=== PATIENT | female | born 1975 | race African-American/Black ===

== ENCOUNTER 2017-05-07 17:28 | Emergency (ER) | payer SELFPAY ==
[~2017-05-07] VITALS: Ht 170.2 cm; Wt 86.2 kg
[~2017-05-07 17:28] MED LIST: SULF1TAB24 PO; TRAM-48 PO
[2017-05-07 17:37] VITALS: BP 122/84
[2017-05-07] MEDS ORDERED: METH4TAB2 PO (18:03)
[2017-05-07] MEDS ORDERED: CYCL10TA2 PO (18:03)
[2017-05-07] MEDS ORDERED: DICL50TA4 PO (18:03)
--- NOTE | 2017-05-07 18:03 | PHYS DOC ---
Past Medical History Past Medical History: No Pertinent History Past Surgical History: No Surgical History Alcohol Use: Rarely Drug Use: None Adult General Chief Complaint Chief Complaint: BACK PAIN OR INJURY HPI HPI Patient is a 42 year old female who presents with mild left lateral neck pain and left scapular pain that began on Wednesday when school opened. Patient states she believes she pulled a muscle. Patient states the pain is worse on movement. 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 She states she highly suspect she strained her muscles. Patient states she has not been working when school was out and Wednesday was the first day she went back to work and that is when the pain begun after lifting a couple heavy cooking pots. Patient denies any chest pain or shortness of breath. Review of Systems Review of Systems Constitutional: Denies fever or chills [] Eyes: Denies change in visual acuity, redness, or eye pain [] HENT: Denies nasal congestion or sore throat [] Respiratory: Denies cough or shortness of breath [] Cardiovascular: No additional information not addressed in HPI [] GI: Denies abdominal pain, nausea, vomiting, bloody stools or diarrhea [] : Denies dysuria or hematuria [] Musculoskeletal: Left scapular pain, left lateral neck pain Integument: Denies rash or skin lesions [] Neurologic: Denies headache, focal weakness or sensory changes [] Allergies Allergies Allergies Coded Allergies Type Severity Reaction Last Updated Verified codeine Allergy Intermediate 10/04/15 No Physical Exam Physical Exam Constitutional: Well developed, well nourished, no acute distress, non-toxic appearance. [] HENT: Normocephalic, atraumatic, bilateral external ears normal, oropharynx moist, no oral exudates, nose normal. [] Eyes: PERRLA, EOMI, conjunctiva normal, no discharge. [] Neck: Normal range of motion, no tenderness, supple, no stridor. [] Cardiovascular:Heart rate regular rhythm, no murmur [] Lungs & Thorax: Bilateral breath sounds clear to auscultation [] Abdomen: Bowel sounds normal, soft, no tenderness, no masses, no pulsatile masses. [] Skin: Warm, dry, no erythema, no rash. [] Back: No tenderness, no CVA tenderness. [] Extremities: No tenderness, no cyanosis, no clubbing, ROM intact, no edema. [] Neurologic: Alert and oriented X 3, normal motor function, normal sensory function, no focal deficits noted. [] Psychologic: Affect normal, judgement normal, mood normal. [] Current Patient Data Vital Signs Vital Signs Date Time Temp Pulse Resp B/P (MAP) Pulse Ox O2 Delivery O2 Flow Rate FiO2 05/07/17 17:37 98.6 97 14 98 Room Air 98.6 EKG EKG [] Radiology/Procedures Radiology/Procedures [] Course & Med Decision Making Course & Med Decision Making Pertinent Labs and Imaging studies reviewed. 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 She states she has been lifting heavy items since school began on Wednesday. Patient was discharged with diclofenac and cyclobenzaprine as well as Medrol Dosepak. She was instructed to follow-up with her PCP in one week. She was provided return precautions and discharged in stable condition. Dragon Disclaimer Dragon Disclaimer This electronic medical record was generated, in whole or in part, using a voice recognition dictation system. Departure Departure Impression: Primary Impression: Muscle strain Disposition: 01 HOME, SELF-CARE Condition: STABLE Referrals: PIOTR GARCIA MD (PCP) Follow-up with your doctor next week Patient Instructions: Muscle Strain Additional Instructions: You were seen for musculoskeletal pain of the left lateral spine as well as left scapula. We highly suspect your muscles. Avoid lifting anything heavy at least for 3 days. Apply heat or ice to the affected areas. Take the prescribed medicines as ordered. Do not drive on cyclobenzaprine. Follow-up with your doctor in a week Scripts Cyclobenzaprine Hcl (CYCLOBENZAPRINE HCL) 10 Mg Tablet 1 TAB PO TID, #30 TAB Prov: MUKESH BRAR APRN 05/07/17 Diclofenac Sodium (DICLOFENAC SODIUM) 50 Mg Tablet.dr 1 TAB PO BID, #30 TAB 0 Refills Prov: MUKESH BRAR APRN 05/07/17 Methylprednisolone (MEDROL) 4 Mg Tab.ds.pk 1 PKG PO UD, #1 PKG Prov: MUKESH BRAR APRN 05/07/17 MUKESH BRAR APRN May 07, 2017 18:03
== END 2017-05-07 18:16 | disposition home or self-care (01) ==
LOC: ER 17:28
DX: S29.012A Strain of muscle and tendon of back wall of thorax, initial encounter (principal); Z88.5 Allergy status to narcotic agent; X58.XXXA Exposure to other specified factors, initial encounter; Y93.89 Activity, other specified; Y99.8 Other external cause status; Y92.218 Other school as the place of occurrence of the external cause
CPT/HCPCS: 99283

== ENCOUNTER 2019-09-29 22:17 | Emergency (ER) | payer SELFPAY ==
[~2019-09-29] VITALS: Ht 165.1 cm; Wt 86.2 kg
[~2019-09-29 22:17] MED LIST changes: +CYCL10TA2 PO; +DICL50TA4 PO; +METH4TAB2 PO
[2019-09-29 22:20] VITALS: BP 149/98
--- NOTE | 2019-09-29 22:38 | PHYS DOC ---
Past Medical History Past Medical History: No Pertinent History (YURY BEDOLLA APRN) Past Surgical History: No Surgical History (YURY BEDOLLA APRN) Alcohol Use: Rarely Drug Use: None (YURY BEDOLLA APRN) Attending Signature I have participated in the care of this patient and I have reviewed and agree with all pertinent clinical information above including history, exam, and recommendations. (HUBERT WILDE MD) Adult General Chief Complaint Chief Complaint: ANKLE PROBLEM HPI HPI Patient is a 44 year old female who presents with the chief complaint of fall that happened about an hour and half before she got here. The patient was leaving the house and stepped off the step and slipped. She is having tenderness to her right tibia-fibula, and right ankle. Rates her pain as 10 out of 10 in severity and sharp. (YURY BEDOLLA APRN) Review of Systems Review of Systems Constitutional: Denies fever or chills [] Eyes: Denies change in visual acuity, redness, or eye pain [] HENT: Denies nasal congestion or sore throat [] Respiratory: Denies cough or shortness of breath [] Cardiovascular: No additional information not addressed in HPI [] GI: Denies abdominal pain, nausea, vomiting, bloody stools or diarrhea [] : Denies dysuria or hematuria [] Musculoskeletal: Reports R lower extremity pain. Integument: Denies rash or skin lesions [] Neurologic: Denies headache, focal weakness or sensory changes [] Complete systems were reviewed and found to be within normal limits, except as documented in this note. (YURY BEDOLLA APRN) Allergies Allergies Allergies Coded Allergies Type Severity Reaction Last Updated Verified codeine Allergy Intermediate 10/04/15 No (HUBERT WILDE MD) Physical Exam Physical Exam Constitutional: Well developed, well nourished, no acute distress, non-toxic appearance. [] HENT: Normocephalic, atraumatic, bilateral external ears normal, oropharynx moist, no oral exudates, nose normal. [] Eyes: PERRLA, EOMI, conjunctiva normal, no discharge. [] Neck: Normal range of motion, no tenderness, supple, no stridor. [] Cardiovascular:Heart rate regular rhythm, no murmur [] Lungs & Thorax: Bilateral breath sounds clear to auscultation [] Extremities: Tenderness diffusely from lower tib/fib to ankle, no cyanosis, no clubbing, ROM reduced, no edema. [] Neurologic: Alert and oriented X 3, normal motor function, normal sensory function, no focal deficits noted. [] Psychologic: Affect normal, judgement normal, mood normal. [] (YURY BEDOLLA APRN) Current Patient Data Vital Signs Vital Signs Date Time Temp Pulse Resp B/P (MAP) Pulse Ox O2 Delivery O2 Flow Rate FiO2 09/29/19 22:20 98.3 78 22 149/98 (115) 98 Room Air 98.3 (HUBERT WILDE MD) EKG EKG [] (YURY BEDOLLA APRN) Radiology/Procedures Radiology/Procedures [] (YURY BEDOLLA APRN) Course & Med Decision Making Course & Med Decision Making Pertinent Labs and Imaging studies reviewed. (See chart for details) Will get imaging. X-ray shows a distal fibula fracture. Will have placed in Short Leg Posterior splint and follow up with Ortho will also give Crutches. Will d/c on [place] and Zofran. (YURY BEDOLLA APRN) Dragon Disclaimer Dragon Disclaimer This electronic medical record was generated, in whole or in part, using a voice recognition dictation system. (YURY BEDOLLA APRN) Departure Departure Impression: Primary Impression: Fracture of distal fibula Disposition: 01 HOME, SELF-CARE Condition: STABLE Referrals: NO PCP (PCP) MANDIE FRIEDMAN MD Patient Instructions: Fibular Fracture, Ankle, Adult, Treated with or without Immobilization Additional Instructions: Thank you for visiting [facility]. We appreciate you trusting us with your care. If any additional problems come up don't hesitate to return to visit us. Please follow up with your primary care provider so they can plan additional care if needed and know about the problem that you had. If symptoms worsen come back to the Emergency Department. Any concerning symptoms that start such as chest pain, shortness of air, weakness or numbness on one side of the body, running high fevers or any other concerning symptoms return to the ER. Please follow up with Dr. Friedman at Orthopedics. Scripts Ondansetron (ONDANSETRON ODT) 4 Mg Tab.rapdis 1 TAB PO PRN Q6-8HRS PRN for NAUSEA, #16 TAB Prov: YURY BEDOLLA APRN 09/29/19 Hydrocodone/Apap 5-325 (NORCO 5-325 TABLET) 1 Each Tablet 1 TAB PO PRN Q6HRS PRN for PAIN for 3 Days, #10 TAB 0 Refills Prov: YURY BEDOLLA APRN 09/29/19 Problem Qualifiers Primary Impression: Fracture of distal fibula Encounter type: initial encounter Fracture type: closed Fracture morphology: unspecified fracture morphology Laterality: right Qualified Codes: S82.831A - Other fracture of upper and lower end of right fibula, initial encounter for closed fracture YURY BEDOLLA APRN Sep 29, 2019 22:38 HUBERT WILDE MD Sep 30, 2019 00:29
--- NOTE | 2019-09-29 23:21 | RAD ---
Right ankle x-rays 3 views HISTORY: Fall FINDINGS: There is a small acute osteochondral thin linear fracture of the medial talus. There is an acute traumatic nondisplaced spiral fracture of the distal fibula shaft and distal metaphysis above the lateral malleolus. Tiny os peroneus. Tibial plafond and medial malleolus intact. IMPRESSION: Acute traumatic spiral fracture of the distal fibula. Acute small traumatic medial talus dome osteochondral fracture. Right tibia-fibula AP lateral x-rays HISTORY: Fall. FINDINGS: Distal fibula shaft and metaphysis acute traumatic spiral fracture seen on the ankle x-rays. No tibial fracture. Soft tissues unremarkable. IMPRESSION: Acute traumatic spiral fracture of the distal fibula. Electronically signed by: Evelio Viramontes MD (09/29/2019 11:18 PM) [facility]
[2019-09-29] MEDS ORDERED: ONDA4TAB12 PO (23:27)
[2019-09-29] MEDS ORDERED: HYDR-3164 PO (23:27)
== END 2019-09-29 23:40 | disposition home or self-care (01) ==
LOC: ER 22:17
DX: S82.441A Displaced spiral fracture of shaft of right fibula, initial encounter for closed fracture (principal); M25.571 Pain in right ankle and joints of right foot; Z88.5 Allergy status to narcotic agent; W10.8XXA Fall (on) (from) other stairs and steps, initial encounter; Y93.89 Activity, other specified; Y92.098 Other place in other non-institutional residence as the place of occurrence of the external cause; Y99.8 Other external cause status
CPT/HCPCS: 29515; 73590; 73610; 99284

== ENCOUNTER 2020-01-02 13:40 | Emergency (ER) | payer SELFPAY ==
[~2020-01-02 13:40] MED LIST changes: +HYDR-3164 PO; +ONDA4TAB12 PO
== END 2020-01-02 14:42 | disposition left against medical advice (07) ==
LOC: ER 13:40
DX: R11.2 Nausea with vomiting, unspecified (principal); R53.83 Other fatigue; Z53.21 Procedure and treatment not carried out due to patient leaving prior to being seen by health care provider

== ENCOUNTER 2020-04-28 13:39 | Inpatient (IN) | payer SELFPAY ==
[~2020-04-28] VITALS: Ht 170.2 cm; Wt 108.8 kg
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
--- NOTE | 2020-04-28 14:47 | RAD ---
Two-view right tibia-fibula, three-view right ankle and three-view right foot dated 04/28/2020. No comparison available. Clinical data indication: Pain after injury. FINDINGS: 2 views the right tibia fibula show normal bony alignment. No proximal tibiofibular shaft fracture. There is mild soft tissue swelling at the mid to lower calf. No apparent abnormality of the knee joint. 3 views the right ankle show mildly displaced oblique fracture through the distal fibula with mild dorsal displacement. There is also a fracture of the medial malleolus, mildly displaced. A vertically oriented fracture extends superiorly along the posterior malleolus. There is slight dorsal subluxation of the talus relative to the distal tibia. Diffuse soft tissue swelling. Suspected small osteochondral defect of the medial talar dome measuring about 4 mm. 3 views the right foot show soft tissue swelling at the hindfoot. No additional fractures are seen. IMPRESSION: 1. Trimalleolar fracture/subluxation as described above. 2. Small osteochondral defect at the medial talar dome, age indeterminate. 3. Soft tissue swelling. Electronically signed by: Nathaniel Cox MD (04/28/2020 2:44 PM) [id number]
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
[2020-04-28] MEDS ORDERED: MORPHINE SULFATE 2 MG/ML VIAL. IV PRN (15:00)
[2020-04-28] MEDS ORDERED: ONDANSETRON PF 4 MG/2 ML VIAL. IV PRN (15:00)
--- NOTE | 2020-04-28 15:09 | RAD ---
PORTABLE CHEST 1V History: Reason: preop / Spl. Instructions: / History: Comparison: July 30, 2015 Findings: No consolidation or pleural effusion. Normal heart size. No pneumothorax. Left basilar calcified nodule, likely prior granulomatous disease. Impression: 1. No acute cardiopulmonary process. Electronically signed by: Tahir Grande DO (04/28/2020 3:06 PM) [facility]
[2020-04-28 15:39] LABS: BASO # 0.1 x10^3/uL (0.0-0.2); BASO % 1 % (0-3); EOS # 0.2 x10^3/uL (0.0-0.7); EOS % 2 % (0-3); HEMATOCRIT 34.2 % (36.0-47.0); HEMOGLOBIN 11.7 g/dL (12.0-15.5); LYMPH # 1.9 x10^3/uL (1.0-4.8); LYMPH % 29 % (24-48); MEAN CORPUSCULAR HEMOGLOBIN 34 pg (25-35); MEAN CORPUSCULAR HGB CONC 34 g/dL (31-37); MEAN CORPUSCULAR VOLUME 99 fL (79-100); MONO # 0.4 x10^3/uL (0.0-1.1); MONO % 6 % (0-9); NEUT % 62 % (31-73); PLATELET COUNT 264 x10^3/uL (140-400); RED BLOOD COUNT 3.47 x10^6/uL (3.50-5.40); RED CELL DISTRIBUTION WIDTH 14.5 % (11.5-14.5); WHITE BLOOD COUNT 6.6 x10^3/uL (4.0-11.0)
[2020-04-28 15:47] LABS: CALCIUM 8.6 mg/dL (8.5-10.1); GFR 71.9; POTASSIUM 3.9 mmol/L (3.5-5.1)
[2020-04-28 15:51] LABS: PROTHROMBIN TIME PATIENT 12.8 SEC (11.7-14.0)
[2020-04-28 15:52] LABS: ALBUMIN/GLOBULIN RATIO 0.8 (1.0-1.7); C-REACTIVE PROTEIN 26.3 mg/L (0-3.3); TOTAL BILIRUBIN 0.3 mg/dL (0.2-1.0); TOTAL PROTEIN 6.8 g/dL (6.4-8.2)
[2020-04-28 15:56] LABS: BILIRUBIN,URINE NEGATIVE (NEG); CLARITY,URINE CLEAR; COLOR,URINE YELLOW; NITRITE,URINE NEGATIVE (NEG); PROTEIN,URINE NEGATIVE (NEG-TRACE)
[2020-04-28 15:58] LABS: BARBITURATES NEG (NEG); BENZODIAZEPINES NEG (NEG); CANNABINOIDS POS (NEG); COCAINE NEG (NEG); METHADONE NEG (NEG); OPIATES NEG (NEG); PHENCYCLIDINE NEG (NEG)
[2020-04-28 15:59] LABS: AMPHETAMINE/METHAMPHETAMINE NEG (NEG)
[2020-04-28 16:06] LABS: RBC,URINE 0 /HPF (0-2)
[2020-04-28 16:07] LABS: BACTERIA,URINE MODERATE /HPF (0-FEW); SQUAMOUS EPITHELIAL CELL,UR MOD /LPF
[2020-04-28] MEDS ORDERED: VANCOMYCIN 1GM IVPB FOR OMNI 250 ML IV ONE (16:15)
[2020-04-28] MEDS ORDERED: VANCOMYCIN 2 GM in IV NORMAL SALINE 500ML BAG 500 ML IV ONE (16:15)
[2020-04-28 17:00] VITALS: BP 116/88
[2020-04-28 19:32] VITALS: BP 110/71
[2020-04-28 22:38] VITALS: BP 122/79
[2020-04-29] MEDS: HYDROmorphone 2 MG/ML VIAL IV PRN ×3 (00:59→11:37)
[2020-04-29 02:40] VITALS: BP 131/86
[2020-04-29 06:16] LABS: BASO % 0 % (0-3); EOS # 0.1 x10^3/uL (0.0-0.7); EOS % 2 % (0-3); HEMATOCRIT 32.2 % (36.0-47.0); HEMOGLOBIN 10.8 g/dL (12.0-15.5); LYMPH # 2.1 x10^3/uL (1.0-4.8); LYMPH % 31 % (24-48); MEAN CORPUSCULAR HEMOGLOBIN 33 pg (25-35); MEAN CORPUSCULAR HGB CONC 34 g/dL (31-37); MEAN CORPUSCULAR VOLUME 99 fL (79-100); MONO # 0.6 x10^3/uL (0.0-1.1); MONO % 8 % (0-9); NEUT # 3.9 x10^3/uL (1.8-7.7); NEUT % 58 % (31-73); PLATELET COUNT 253 x10^3/uL (140-400); RED BLOOD COUNT 3.26 x10^6/uL (3.50-5.40); RED CELL DISTRIBUTION WIDTH 14.5 % (11.5-14.5); WHITE BLOOD COUNT 6.8 x10^3/uL (4.0-11.0)
[2020-04-29 06:55] VITALS: BP 149/99
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
--- NOTE | 2020-04-29 08:07 | EKG ---
[facility] [address] [place] [id number] Test Date: 2020-04-28 Test Time: 16:02:44 Pat Name: SABRINA RICKETTS Department: Room: Gender: F Tool Setter: : 1975 Requested By: RUPERTO VITAL Order Number: [id number] Reading MD: Measurements Intervals [place] Rate: 59 P: 38 TN: 140 QRS: -6 QRSD: 78 T: -30 QT: 410 QTc: 410 Interpretive Statements SINUS RHYTHM LEFTWARD AXIS NO SPECIFIC ECG ABNORMALITIES RI6.01 No previous ECG available for comparison
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
[2020-04-29 11:00] VITALS: BP 127/83
[2020-04-29] MEDS: OLANZapine 5 MG TABLET PO SCH (11:36)
--- NOTE | 2020-04-29 12:10 | PDOC ---
PROGRESS NOTES Date of Service: DATE: 04/29/20 TIME: 12:08 Chief Complaint Chief Complaint 1. Trimalleolar fracture/subluxation , DELAY IN SEEKING medical treatment 2. Small osteochondral defect at the medial talar dome, age indeterminate. 3. Soft tissue swelling. 4. self neglect 5. delusional psychosis, likely bipolar, History of Present Illness History of Present Illness ortho consult following, PSYCH CONSULT has seen, started zyprexa, dvt prophylaxis iv pain control Vitals Vitals Vital Signs Date Time Temp Pulse Resp B/P (MAP) Pulse Ox O2 Delivery O2 Flow Rate FiO2 04/29/20 11:37 Room Air 04/29/20 11:00 97.9 70 18 127/83 (98) 98 97.9 Physical Exam General: mild distress Lungs: Clear Abdomen: Normal bowel sounds, Soft, No tenderness Extremities: No cyanosis Labs LABS Laboratory Tests Test 04/28/20 15:20 04/28/20 15:25 04/28/20 15:45 04/29/20 05:25 SARS-CoV-2 Antigen (Rapid) Negative (NEGATIVE) White Blood Count 6.6 x10^3/uL (4.0-11.0) 6.8 x10^3/uL (4.0-11.0) Red Blood Count 3.47 x10^6/uL (3.50-5.40) 3.26 x10^6/uL (3.50-5.40) Hemoglobin 11.7 g/dL (12.0-15.5) 10.8 g/dL (12.0-15.5) Hematocrit 34.2 % (36.0-47.0) 32.2 % (36.0-47.0) Mean Corpuscular Volume 99 fL (79-100) 99 fL (79-100) Mean Corpuscular Hemoglobin 34 pg (25-35) 33 pg (25-35) Mean Corpuscular Hemoglobin Concent 34 g/dL (31-37) 34 g/dL (31-37) Red Cell Distribution Width 14.5 % (11.5-14.5) 14.5 % (11.5-14.5) Platelet Count 264 x10^3/uL (140-400) 253 x10^3/uL (140-400) Neutrophils (%) (Auto) 62 % (31-73) 58 % (31-73) Lymphocytes (%) (Auto) 29 % (24-48) 31 % (24-48) Monocytes (%) (Auto) 6 % (0-9) 8 % (0-9) Eosinophils (%) (Auto) 2 % (0-3) 2 % (0-3) Basophils (%) (Auto) 1 % (0-3) 0 % (0-3) Neutrophils # (Auto) 4.0 x10^3/uL (1.8-7.7) 3.9 x10^3/uL (1.8-7.7) Lymphocytes # (Auto) 1.9 x10^3/uL (1.0-4.8) 2.1 x10^3/uL (1.0-4.8) Monocytes # (Auto) 0.4 x10^3/uL (0.0-1.1) 0.6 x10^3/uL (0.0-1.1) Eosinophils # (Auto) 0.2 x10^3/uL (0.0-0.7) 0.1 x10^3/uL (0.0-0.7) Basophils # (Auto) 0.1 x10^3/uL (0.0-0.2) 0.0 x10^3/uL (0.0-0.2) Prothrombin Time 12.8 SEC (11.7-14.0) Prothromb Time International Ratio 1.0 (0.8-1.1) Activated Partial Thromboplast Time 29 SEC (24-38) Sodium Level 142 mmol/L (136-145) Potassium Level 3.9 mmol/L (3.5-5.1) Chloride Level 104 mmol/L (98-107) Carbon Dioxide Level 32 mmol/L (21-32) Anion Gap 6 (6-14) Blood Urea Nitrogen 5 mg/dL (7-20) Creatinine 1.0 mg/dL (0.6-1.0) Estimated GFR (Cockcroft-Gault) 71.9 BUN/Creatinine Ratio 5 (6-20) Glucose Level 102 mg/dL (70-99) Calcium Level 8.6 mg/dL (8.5-10.1) Total Bilirubin 0.3 mg/dL (0.2-1.0) Aspartate Amino Transf (AST/SGOT) 16 U/L (15-37) Alanine Aminotransferase (ALT/SGPT) 14 U/L (14-59) Alkaline Phosphatase 54 U/L (46-116) C-Reactive Protein, Quantitative 26.3 mg/L (0-3.3) Total Protein 6.8 g/dL (6.4-8.2) Albumin 3.0 g/dL (3.4-5.0) Albumin/Globulin Ratio 0.8 (1.0-1.7) Ethyl Alcohol Level < 10 mg/dL (0-10) Urine Collection Type Void Urine Color Yellow Urine Clarity Clear Urine pH 7.0 (<5.0-8.0) Urine Specific [place] <=1.005 (1.000-1.030) Urine Protein Negative mg/dL (NEG-TRACE) Urine Glucose (UA) Negative mg/dL (NEG) Urine Ketones (Stick) Negative mg/dL (NEG) Urine Blood Negative (NEG) Urine Nitrite Negative (NEG) Urine Bilirubin Negative (NEG) Urine Urobilinogen Dipstick 1.0 mg/dL (0.2 mg/dL) Urine Leukocyte Esterase Small (NEG) Urine RBC 0 /HPF (0-2) Urine WBC 11-20 /HPF (0-4) Urine Squamous Epithelial Cells Mod /LPF Urine Bacteria Moderate /HPF (0-FEW) Urine Opiates Screen Neg (NEG) Urine Methadone Screen Neg (NEG) Urine Barbiturates Neg (NEG) Urine Phencyclidine Screen Neg (NEG) Urine Amphetamine/Methamphetamine Neg (NEG) Urine Benzodiazepines Screen Neg (NEG) Urine Cocaine Screen Neg (NEG) Urine Cannabinoids Screen Pos (NEG) Urine Ethyl Alcohol Neg (NEG) Assessment and Plan Assessmemt and Plan Problems Medical Problems: (1) Closed right trimalleolar fracture Status: Acute Comment Review of Relevant I have reviewed the following items carroll (where applicable) has been applied. Labs Laboratory Tests Test 04/28/20 15:20 04/28/20 15:25 04/28/20 15:45 04/29/20 05:25 SARS-CoV-2 Antigen (Rapid) Negative (NEGATIVE) White Blood Count 6.6 x10^3/uL (4.0-11.0) 6.8 x10^3/uL (4.0-11.0) Red Blood Count 3.47 x10^6/uL (3.50-5.40) 3.26 x10^6/uL (3.50-5.40) Hemoglobin 11.7 g/dL (12.0-15.5) 10.8 g/dL (12.0-15.5) Hematocrit 34.2 % (36.0-47.0) 32.2 % (36.0-47.0) Mean Corpuscular Volume 99 fL (79-100) 99 fL (79-100) Mean Corpuscular Hemoglobin 34 pg (25-35) 33 pg (25-35) Mean Corpuscular Hemoglobin Concent 34 g/dL (31-37) 34 g/dL (31-37) Red Cell Distribution Width 14.5 % (11.5-14.5) 14.5 % (11.5-14.5) Platelet Count 264 x10^3/uL (140-400) 253 x10^3/uL (140-400) Neutrophils (%) (Auto) 62 % (31-73) 58 % (31-73) Lymphocytes (%) (Auto) 29 % (24-48) 31 % (24-48) Monocytes (%) (Auto) 6 % (0-9) 8 % (0-9) Eosinophils (%) (Auto) 2 % (0-3) 2 % (0-3) Basophils (%) (Auto) 1 % (0-3) 0 % (0-3) Neutrophils # (Auto) 4.0 x10^3/uL (1.8-7.7) 3.9 x10^3/uL (1.8-7.7) Lymphocytes # (Auto) 1.9 x10^3/uL (1.0-4.8) 2.1 x10^3/uL (1.0-4.8) Monocytes # (Auto) 0.4 x10^3/uL (0.0-1.1) 0.6 x10^3/uL (0.0-1.1) Eosinophils # (Auto) 0.2 x10^3/uL (0.0-0.7) 0.1 x10^3/uL (0.0-0.7) Basophils # (Auto) 0.1 x10^3/uL (0.0-0.2) 0.0 x10^3/uL (0.0-0.2) Prothrombin Time 12.8 SEC (11.7-14.0) Prothromb Time International Ratio 1.0 (0.8-1.1) Activated Partial Thromboplast Time 29 SEC (24-38) Sodium Level 142 mmol/L (136-145) Potassium Level 3.9 mmol/L (3.5-5.1) Chloride Level 104 mmol/L (98-107) Carbon Dioxide Level 32 mmol/L (21-32) Anion Gap 6 (6-14) Blood Urea Nitrogen 5 mg/dL (7-20) Creatinine 1.0 mg/dL (0.6-1.0) Estimated GFR (Cockcroft-Gault) 71.9 BUN/Creatinine Ratio 5 (6-20) Glucose Level 102 mg/dL (70-99) Calcium Level 8.6 mg/dL (8.5-10.1) Total Bilirubin 0.3 mg/dL (0.2-1.0) Aspartate Amino Transf (AST/SGOT) 16 U/L (15-37) Alanine Aminotransferase (ALT/SGPT) 14 U/L (14-59) Alkaline Phosphatase 54 U/L (46-116) C-Reactive Protein, Quantitative 26.3 mg/L (0-3.3) Total Protein 6.8 g/dL (6.4-8.2) Albumin 3.0 g/dL (3.4-5.0) Albumin/Globulin Ratio 0.8 (1.0-1.7) Ethyl Alcohol Level < 10 mg/dL (0-10) Urine Collection Type Void Urine Color Yellow Urine Clarity Clear Urine pH 7.0 (<5.0-8.0) Urine Specific [place] <=1.005 (1.000-1.030) Urine Protein Negative mg/dL (NEG-TRACE) Urine Glucose (UA) Negative mg/dL (NEG) Urine Ketones (Stick) Negative mg/dL (NEG) Urine Blood Negative (NEG) Urine Nitrite Negative (NEG) Urine Bilirubin Negative (NEG) Urine Urobilinogen Dipstick 1.0 mg/dL (0.2 mg/dL) Urine Leukocyte Esterase Small (NEG) Urine RBC 0 /HPF (0-2) Urine WBC 11-20 /HPF (0-4) Urine Squamous Epithelial Cells Mod /LPF Urine Bacteria Moderate /HPF (0-FEW) Urine Opiates Screen Neg (NEG) Urine Methadone Screen Neg (NEG) Urine Barbiturates Neg (NEG) Urine Phencyclidine Screen Neg (NEG) Urine Amphetamine/Methamphetamine Neg (NEG) Urine Benzodiazepines Screen Neg (NEG) Urine Cocaine Screen Neg (NEG) Urine Cannabinoids Screen Pos (NEG) Urine Ethyl Alcohol Neg (NEG) Laboratory Tests Test 04/28/20 15:20 04/28/20 15:25 04/28/20 15:45 04/29/20 05:25 SARS-CoV-2 Antigen (Rapid) Negative (NEGATIVE) White Blood Count 6.6 x10^3/uL (4.0-11.0) 6.8 x10^3/uL (4.0-11.0) Red Blood Count 3.47 x10^6/uL (3.50-5.40) 3.26 x10^6/uL (3.50-5.40) Hemoglobin 11.7 g/dL (12.0-15.5) 10.8 g/dL (12.0-15.5) Hematocrit 34.2 % (36.0-47.0) 32.2 % (36.0-47.0) Mean Corpuscular Volume 99 fL (79-100) 99 fL (79-100) Mean Corpuscular Hemoglobin 34 pg (25-35) 33 pg (25-35) Mean Corpuscular Hemoglobin Concent 34 g/dL (31-37) 34 g/dL (31-37) Red Cell Distribution Width 14.5 % (11.5-14.5) 14.5 % (11.5-14.5) Platelet Count 264 x10^3/uL (140-400) 253 x10^3/uL (140-400) Neutrophils (%) (Auto) 62 % (31-73) 58 % (31-73) Lymphocytes (%) (Auto) 29 % (24-48) 31 % (24-48) Monocytes (%) (Auto) 6 % (0-9) 8 % (0-9) Eosinophils (%) (Auto) 2 % (0-3) 2 % (0-3) Basophils (%) (Auto) 1 % (0-3) 0 % (0-3) Neutrophils # (Auto) 4.0 x10^3/uL (1.8-7.7) 3.9 x10^3/uL (1.8-7.7) Lymphocytes # (Auto) 1.9 x10^3/uL (1.0-4.8) 2.1 x10^3/uL (1.0-4.8) Monocytes # (Auto) 0.4 x10^3/uL (0.0-1.1) 0.6 x10^3/uL (0.0-1.1) Eosinophils # (Auto) 0.2 x10^3/uL (0.0-0.7) 0.1 x10^3/uL (0.0-0.7) Basophils # (Auto) 0.1 x10^3/uL (0.0-0.2) 0.0 x10^3/uL (0.0-0.2) Prothrombin Time 12.8 SEC (11.7-14.0) Prothromb Time International Ratio 1.0 (0.8-1.1) Activated Partial Thromboplast Time 29 SEC (24-38) Sodium Level 142 mmol/L (136-145) Potassium Level 3.9 mmol/L (3.5-5.1) Chloride Level 104 mmol/L (98-107) Carbon Dioxide Level 32 mmol/L (21-32) Anion Gap 6 (6-14) Blood Urea Nitrogen 5 mg/dL (7-20) Creatinine 1.0 mg/dL (0.6-1.0) Estimated GFR (Cockcroft-Gault) 71.9 BUN/Creatinine Ratio 5 (6-20) Glucose Level 102 mg/dL (70-99) Calcium Level 8.6 mg/dL (8.5-10.1) Total Bilirubin 0.3 mg/dL (0.2-1.0) Aspartate Amino Transf (AST/SGOT) 16 U/L (15-37) Alanine Aminotransferase (ALT/SGPT) 14 U/L (14-59) Alkaline Phosphatase 54 U/L (46-116) C-Reactive Protein, Quantitative 26.3 mg/L (0-3.3) Total Protein 6.8 g/dL (6.4-8.2) Albumin 3.0 g/dL (3.4-5.0) Albumin/Globulin Ratio 0.8 (1.0-1.7) Ethyl Alcohol Level < 10 mg/dL (0-10) Urine Collection Type Void Urine Color Yellow Urine Clarity Clear Urine pH 7.0 (<5.0-8.0) Urine Specific [place] <=1.005 (1.000-1.030) Urine Protein Negative mg/dL (NEG-TRACE) Urine Glucose (UA) Negative mg/dL (NEG) Urine Ketones (Stick) Negative mg/dL (NEG) Urine Blood Negative (NEG) Urine Nitrite Negative (NEG) Urine Bilirubin Negative (NEG) Urine Urobilinogen Dipstick 1.0 mg/dL (0.2 mg/dL) Urine Leukocyte Esterase Small (NEG) Urine RBC 0 /HPF (0-2) Urine WBC 11-20 /HPF (0-4) Urine Squamous Epithelial Cells Mod /LPF Urine Bacteria Moderate /HPF (0-FEW) Urine Opiates Screen Neg (NEG) Urine Methadone Screen Neg (NEG) Urine Barbiturates Neg (NEG) Urine Phencyclidine Screen Neg (NEG) Urine Amphetamine/Methamphetamine Neg (NEG) Urine Benzodiazepines Screen Neg (NEG) Urine Cocaine Screen Neg (NEG) Urine Cannabinoids Screen Pos (NEG) Urine Ethyl Alcohol Neg (NEG) Medications Current Medications Ondansetron HCl (Zofran) 4 mg PRN Q8HRS PRN IV NAUSEA/VOMITING Last administered on 04/29/20at 11:37; Start 04/28/20 at 15:00; Stop 04/29/20 at 14:59 Morphine Sulfate (Morphine Sulfate) 2 mg PRN Q2HR PRN IV PAIN; Start 04/28/20 at 15:00; Stop 04/29/20 at 14:59 Vancomycin HCl 250 ml @ 250 mls/hr 1X ONCE IV ; Start 04/28/20 at 16:15; Stop 04/28/20 at 17:14; Status UNV Vancomycin HCl 2 gm/Sodium Chloride 500 ml @ 250 mls/hr ONCE ONCE IV Last administered on 04/28/20at 17:28; Start 04/28/20 at 16:15; Stop 04/28/20 at 18:14; Status DC Hydromorphone HCl (Dilaudid) 1 mg PRN Q3HRS PRN IV PAIN Last administered on 04/29/20at 11:37; Start 04/29/20 at 00:45 Olanzapine (ZyPREXA) 5 mg DAILY PO Last administered on 04/29/20at 11:36; Start 04/29/20 at 11:00 Oxycodone/ Acetaminophen (Percocet 5/325) 1 tab PRN Q4HRS PRN PO PAIN; Start 04/29/20 at 12:15 Active Scripts Active Ondansetron Odt (Ondansetron) 4 Mg Tab.rapdis 1 Tab PO PRN Q6-8HRS PRN [place] 5-325 Tablet (Acetaminophen/Hydrocodone Bitart) 1 Each Tablet 1 Tab PO PRN Q6HRS PRN 3 Days Cyclobenzaprine Hcl 10 Mg Tablet 1 Tab PO TID Diclofenac Sodium 50 Mg Tablet.dr 1 Tab PO BID Medrol (Methylprednisolone) 4 Mg Tab.ds.pk 1 Pkg PO UD Bactrim Ds Tablet (Sulfamethoxazole/Trimethoprim) 1 Each Tablet 1 Tab PO BID Ultram (Tramadol Hcl) 50 Mg Tablet 50 Mg PO PRN Q6HRS PRN Vitals/I & O Vital Sign - Last 24 Hours 04/28/20 04/28/20 04/28/20 04/28/20 14:04 15:00 17:00 17:39 Temp 97.5 98.5 97.5 98.5 Pulse 74 70 63 Resp 16 16 18 B/P (MAP) 163/97 (119) 154/102 (119) 116/88 (97) Pulse Ox 98 99 99 O2 Delivery Room Air Room Air Room Air Room Air 04/28/20 04/28/20 04/28/20 04/29/20 19:32 20:00 22:38 00:59 Temp 98.1 98.1 98.1 98.1 Pulse 74 74 Resp 20 19 B/P (MAP) 110/71 (84) 122/79 (93) Pulse Ox 97 95 O2 Delivery Room Air Room Air Room Air Room Air 04/29/20 04/29/20 04/29/20 04/29/20 01:29 02:40 06:55 07:43 Temp 97.5 97.8 97.5 97.8 Pulse 66 67 Resp 18 18 B/P (MAP) 131/86 (101) 149/99 (116) Pulse Ox 95 96 98 O2 Delivery Room Air Room Air Room Air Room Air 04/29/20 04/29/20 04/29/20 04/29/20 08:00 08:15 11:00 11:37 Temp 97.9 97.9 Pulse 70 Resp 18 B/P (MAP) 127/83 (98) Pulse Ox 98 O2 Delivery Room Air Room Air Room Air Room Air Intake and Output 04/28/20 04/28/20 04/29/20 15:00 23:00 07:00 Intake Total 660 ml 2160 ml Balance 660 ml 2160 ml Justicifation of Admission Dx: Justifications for Admission: Justification of Admission Dx: Yes MARÍA ELENA POSADAS MD Apr 29, 2020 12:10
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
[2020-04-29 15:00] VITALS: BP 132/79
--- NOTE | 2020-04-29 16:22 | NUR ---
wound care patient seen by [facility] [employer], see her progress note. wound care will f/u on 05/01/2020
[2020-04-29 19:15] VITALS: BP 138/90
[2020-04-29] MEDS: oxyCODONE/APAP 5/325 1 TAB TABLET PO PRN (21:38)
[2020-04-29 23:20] VITALS: BP 120/79
[2020-04-30] MEDS: oxyCODONE/APAP 5/325 1 TAB TABLET PO PRN ×5 (02:47→22:43)
--- NOTE | 2020-04-30 04:08 | NUR ---
Patient took dressing off. Redressed with 4x4 gauze, gauze wrap, and clothe tape. Addendum: 04/30/20 at 0410 by YELENA GASTELUM RN Moderate amount of drainage on previous dressing. Drainage was serosanguineous and yellow.
[2020-04-30 04:30] VITALS: BP 132/88
[2020-04-30 07:09] VITALS: BP 130/88
[2020-04-30] MEDS: OLANZapine 5 MG TABLET PO SCH (08:56)
[2020-04-30 11:06] VITALS: BP 148/89
--- NOTE | 2020-04-30 11:38 | NUR ---
SW following. Discussed with RN, PAT team cleared pt for discharge. Pt will not have surgery for at least 14 days. PT ordered to determine if pt needs crutches or walker. ABRIL will continue to follow. Addendum: 04/30/20 at 1553 by HYACINTH SAMUELS ABRIL received a call from King Rothman (pt's daughter) wanted information about medicaid and PAT team. ABRIL spoked with Jany at [employer] - she is planning on calling King, provided Cresencio TATUM with King's number. ABRIL will continue to follow.
--- NOTE | 2020-04-30 12:24 | NUR ---
Kole is having flight of ideas and is impulsive. she has removed her dressing to her ankle at least 3 times today. Physical therapy stated that she is impulsive and almost fell with them. daughter wants to tlk to the PAT team and the case management social worker,. "i cant take her home like this" both case management social worker and PAT team paged.
[2020-04-30 15:15] VITALS: BP 147/100
--- NOTE | 2020-04-30 17:16 | PDOC ---
PROGRESS NOTES Date of Service: DATE: 04/30/20 TIME: 17:16 Chief Complaint Chief Complaint 1. Trimalleolar fracture/subluxation , DELAY IN SEEKING medical treatment 2. Small osteochondral defect at the medial talar dome, age indeterminate. 3. Soft tissue swelling. 4. self neglect 5. delusional psychosis, likely bipolar, History of Present Illness History of Present Illness surg in weeks, will need a boot still on 1:1, will try to DC soon ortho consult following, dvt prophylaxis Vitals Vitals Vital Signs Date Time Temp Pulse Resp B/P (MAP) Pulse Ox O2 Delivery O2 Flow Rate FiO2 04/30/20 15:15 97.7 81 20 147/100 (116) 96 Room Air 97.7 Physical Exam General: Alert, Cooperative Heart: Regular rate Lungs: Clear Abdomen: Soft Extremities: Other (The right ankle is swollen but not grossly malaligned. There is a massive medial fracture blister which has been decompressed but the overlying skin of the blister remains without being unroofed at this time. There is no purulent drainage or evidence of obvious infection. There are some superficial abrasions but I do not see any definitive evidence of an open fracture. She has intact light touch sensation at the toes and can slightly dorsiflex and plantarflex the toes without evidence of significant neurovascular injury. The calf is soft and nontender with no evidence of DVT.) Skin: Other (Fracture blister as above) Assessment and Plan Assessmemt and Plan Problems Medical Problems: (1) Closed right trimalleolar fracture Status: Acute Comment Review of Relevant I have reviewed the following items carroll (where applicable) has been applied. Labs Laboratory Tests Test 04/29/20 05:25 White Blood Count 6.8 x10^3/uL (4.0-11.0) Red Blood Count 3.26 x10^6/uL (3.50-5.40) Hemoglobin 10.8 g/dL (12.0-15.5) Hematocrit 32.2 % (36.0-47.0) Mean Corpuscular Volume 99 fL (79-100) Mean Corpuscular Hemoglobin 33 pg (25-35) Mean Corpuscular Hemoglobin Concent 34 g/dL (31-37) Red Cell Distribution Width 14.5 % (11.5-14.5) Platelet Count 253 x10^3/uL (140-400) Neutrophils (%) (Auto) 58 % (31-73) Lymphocytes (%) (Auto) 31 % (24-48) Monocytes (%) (Auto) 8 % (0-9) Eosinophils (%) (Auto) 2 % (0-3) Basophils (%) (Auto) 0 % (0-3) Neutrophils # (Auto) 3.9 x10^3/uL (1.8-7.7) Lymphocytes # (Auto) 2.1 x10^3/uL (1.0-4.8) Monocytes # (Auto) 0.6 x10^3/uL (0.0-1.1) Eosinophils # (Auto) 0.1 x10^3/uL (0.0-0.7) Basophils # (Auto) 0.0 x10^3/uL (0.0-0.2) Microbiology 04/28/20 Urine Culture - Final, Complete Medications Current Medications Ondansetron HCl (Zofran) 4 mg PRN Q8HRS PRN IV NAUSEA/VOMITING Last administered on 04/29/20at 11:37; Start 04/28/20 at 15:00; Stop 04/29/20 at 14:59; Status DC Morphine Sulfate (Morphine Sulfate) 2 mg PRN Q2HR PRN IV PAIN; Start 04/28/20 at 15:00; Stop 04/29/20 at 14:59; Status DC Vancomycin HCl 250 ml @ 250 mls/hr 1X ONCE IV ; Start 04/28/20 at 16:15; Stop 04/28/20 at 17:14; Status UNV Vancomycin HCl 2 gm/Sodium Chloride 500 ml @ 250 mls/hr ONCE ONCE IV Last administered on 04/28/20at 17:28; Start 04/28/20 at 16:15; Stop 04/28/20 at 18:14; Status DC Hydromorphone HCl (Dilaudid) 1 mg PRN Q3HRS PRN IV PAIN Last administered on 04/29/20at 11:37; Start 04/29/20 at 00:45 Olanzapine (ZyPREXA) 5 mg DAILY PO Last administered on 04/30/20at 08:56; Start 04/29/20 at 11:00 Oxycodone/ Acetaminophen (Percocet 5/325) 1 tab PRN Q4HRS PRN PO PAIN Last administered on 04/30/20at 11:12; Start 04/29/20 at 12:15 Active Scripts Active Ondansetron Odt (Ondansetron) 4 Mg Tab.rapdis 1 Tab PO PRN Q6-8HRS PRN [place] 5-325 Tablet (Acetaminophen/Hydrocodone Bitart) 1 Each Tablet 1 Tab PO PRN Q6HRS PRN 3 Days Cyclobenzaprine Hcl 10 Mg Tablet 1 Tab PO TID Diclofenac Sodium 50 Mg Tablet.dr 1 Tab PO BID Medrol (Methylprednisolone) 4 Mg Tab.ds.pk 1 Pkg PO UD Bactrim Ds Tablet (Sulfamethoxazole/Trimethoprim) 1 Each Tablet 1 Tab PO BID Ultram (Tramadol Hcl) 50 Mg Tablet 50 Mg PO PRN Q6HRS PRN Vitals/I & O Vital Sign - Last 24 Hours 04/29/20 04/29/20 04/29/20 04/29/20 19:15 20:00 21:38 22:38 Pulse 69 Resp 14 15 B/P (MAP) 138/90 (106) Pulse Ox 98 O2 Delivery Room Air Room Air Room Air 04/29/20 04/30/20 04/30/20 04/30/20 23:20 02:47 03:47 04:30 Temp 98.5 97.4 98.5 97.4 Pulse 69 70 Resp 16 14 14 B/P (MAP) 120/79 (93) 132/88 (103) Pulse Ox 95 95 O2 Delivery Room Air Room Air Room Air Room Air 04/30/20 04/30/20 04/30/20 04/30/20 06:54 07:09 07:37 08:00 Temp 98.2 98.2 Pulse 74 Resp 14 18 B/P (MAP) 130/88 (102) Pulse Ox 96 96 O2 Delivery Room Air Room Air Room Air Room Air 04/30/20 04/30/20 11:06 15:15 Temp 97.2 97.7 97.2 97.7 Pulse 78 81 Resp 20 20 B/P (MAP) 148/89 (108) 147/100 (116) Pulse Ox 97 96 O2 Delivery Room Air Room Air Intake and Output 04/29/20 04/29/20 04/30/20 15:00 23:00 07:00 Intake Total 700 ml 708 ml 1000 ml Output Total 800 ml 600 ml Balance -100 ml 108 ml 1000 ml Justicifation of Admission Dx: Justifications for Admission: Justification of Admission Dx: Yes MARÍA ELENA POSADAS MD Apr 30, 2020 17:16
[2020-04-30 19:03] VITALS: BP 139/64
--- NOTE | 2020-04-30 19:21 | NUR ---
condition unchanged. continues to be impulsive. only changed dressing x1 this afternoon. remains on 1:1 ambulated with walker and cam boot x1.
--- NOTE | 2020-04-30 21:10 | PDOC ---
F/U PHYSCH PROG NOTE Subjective: -[place] female seen for routine follow-up. Progress is reviewed with nursing staff. She is on constant observation. No major emotional or behavioral event reported overnight. She continues to be irritable, dysphoric, and confused. Stating, she is still mad on incident and injury to her ankle. However she could not do anything. Stating she just wanted to go home. Mood is still dysphoric. Appears unstable and in distress. Presently she is under influence of narcotics as well. Denies auditory or visual hallucinations. Avoiding clear answer for suicidal statements. Objective: 14 point review of system is otherwise negative except for stated above. Vital Signs: Vital Signs Date Time Temp Pulse Resp B/P (MAP) Pulse Ox O2 Delivery O2 Flow Rate FiO2 04/30/20 20:00 Room Air 04/30/20 19:13 14 04/30/20 19:03 97.7 72 139/64 (89) 98 97.7 Medications: Current Medications Medications (Trade) Dose Ordered Sig/Olvin Start Time Stop Time Status Last Admin Dose Admin Hydromorphone HCl (Dilaudid) 1 mg PRN Q3HRS PRN 04/29/20 00:45 04/29/20 11:37 1 MG Morphine Sulfate (Morphine Sulfate) 2 mg PRN Q2HR PRN 04/28/20 15:00 04/29/20 14:59 DC Olanzapine (ZyPREXA) 5 mg DAILY 04/29/20 11:00 04/30/20 08:56 5 MG Ondansetron HCl (Zofran) 4 mg PRN Q8HRS PRN 04/28/20 15:00 04/29/20 14:59 DC 04/29/20 11:37 4 MG Oxycodone/ Acetaminophen (Percocet 5/325) 1 tab PRN Q4HRS PRN 04/29/20 12:15 04/30/20 18:13 1 TAB Vancomycin HCl 250 ml @ 250 mls/hr 1X ONCE 04/28/20 16:15 04/28/20 17:14 UNV Vancomycin HCl 2 gm/Sodium Chloride 500 ml @ 250 mls/hr ONCE ONCE 04/28/20 16:15 04/28/20 18:14 DC 04/28/20 17:28 250 MLS/HR Physical Exam: Mental Status Exam: Young female appears her stated age Not very cooperative, irritable Disoriented Thought processes disorganized Denies auditory or visual hallucinations She appears paranoid Endorsing suicidal ideation with plan. Intent is high. Denies visual hallucinations. Mood is depressed, anxious, and irritable Affect is dysphoric Insight is limited Impulse control is limited Judgment is impaired Attention span and concentration impaired Recent and remote memory impaired Physical Exam: Refer to Physician's note. ANALYSIS INTERNSHIP: No focal deficit MSK: No EPS, TDK, or abnormal involuntary movements Diagnosis: Unspecified bipolar mood disorder. Rule out bipolar mood disorder Unspecified psychosis. Rule out major psychotic disorder. Depression Generalized anxiety disorder. Panic attacks Assessment: She is a young -[place] female with history longstanding history of multiple complex psychiatric comorbidities struggling with depression and psychosis in context of her bipolar tendencies. Tried to convince regarding ps ychotropics including Zyprexa. She agrees to take Zyprexa Zydis. She continues to have dysphoric mood and irritability. However, she is taking Zyprexa Zydis. Continues to have anger over the incident and injury to her ankle. Will continue Zyprexa as is. Plan: Continue Zyprexa 5mg HS for mood stability. Risks, benefits, alternatives of the treatment are discussed. She is in agreement with plan and voiced understanding Adverse drug reaction of the medication including but not limited to EPS, weight gain, risk of tardive dyskinesia, metabolic syndrome are discussed Monitor for symptomatology, safety, and adverse drug reaction. Will be working at medication adjustment accordingly. Patient needs psychiatric inpatient for substantial stability and aftercare services. Thank you for involving inpatient care. MAGNOLIA MA MD Apr 30, 2020 21:10
[2020-04-30 22:58] VITALS: BP 130/96
[2020-05-01] MEDS: oxyCODONE/APAP 5/325 1 TAB TABLET PO PRN ×4 (02:26→12:46)
[2020-05-01 04:03] VITALS: BP 135/91
[2020-05-01 07:01] VITALS: BP 144/82
[2020-05-01] MEDS ORDERED: OLAN5TAB9 PO (09:09)
[2020-05-01] MEDS ORDERED: HYDR-3164 PO (09:09)
[2020-05-01] MEDS ORDERED: DOCU-109 PO (09:09)
[2020-05-01] MEDS: OLANZapine 5 MG TABLET PO SCH (09:31)
--- NOTE | 2020-05-01 09:51 | NUR ---
SW following. Discussed with RN, pt still on 1:[address] Massey stating pt needs inpatient psych, however pt is not SI so does not meet criteria to be placed, per Cresencio with PAT. Pt has been cleared by PAT. Discharge order for home with self care. No further SW needs.
--- NOTE | 2020-05-01 09:54 | NUR ---
case management states that the PAT team states she can go home. discharge order placed. again reinforced to place the cam boot walker on her broken ankle prior to walking anywhere. she goes off on another tangent and states that she doesnt like boot
[2020-05-01 12:03] VITALS: BP 148/78
--- NOTE | 2020-05-01 12:36 | PDOC3 ---
Discharge Summary Visit Information Date of Admission: Apr 28, 2020 Date of Discharge: May 01, 2020 Final Diagnosis 1. Trimalleolar fracture/subluxation , DELAY IN SEEKING medical treatment 2. Small osteochondral defect at the medial talar dome, age indeterminate. 3. Soft tissue swelling. 4. self neglect 5. delusional psychosis, likely bipolar, Problems Medical Problems: (1) Closed right trimalleolar fracture Status: Acute Brief Hospital Course Allergies Allergies Coded Allergies Type Severity Reaction Last Updated Verified codeine Allergy Intermediate 04/29/20 Yes Vital Signs Vital Signs Date Time Temp Pulse Resp B/P (MAP) Pulse Ox O2 Delivery O2 Flow Rate FiO2 05/01/20 12:03 97.2 72 20 148/78 (101) 96 Room Air 97.2 Brief Hospital Course Ms. Rothman is a 45 old female with bipolar and psychosis, admit for leg pain, ankle fracture, will need surg in weeks. psychosis better with zyprexa, Discharge Information Condition at Discharge: Improved Follow Up: Weeks Disposition/Orders: D/C to Home Scheduled Docusate Sodium (Colace) 100 Mg Capsule, 1 MG PO DAILY for stool softener, #30 Prescribed by: MARÍA ELENA POSADAS on 05/01/20908 Olanzapine (Olanzapine) 5 Mg Tablet, 5 MG PO DAILY for bipolar, #30 Prescribed by: MARÍA ELENA POSADAS on 05/01/20908 Scheduled PRN Hydrocodone/Apap 5-325 ([place] 5-325 Tablet) 1 Each Tablet, 1 TAB PO PRN Q6HRS PRN for PAIN for 3 Days, #30 Ref 0 Prescribed by: MARÍA ELENA POSADAS on 05/01/20 09 Discontinued Medications Cyclobenzaprine Hcl (Cyclobenzaprine Hcl) 10 Mg Tablet, 1 TAB PO TID, #30 Prescribed by: Radha Christensen APRN on 05/07/171802 Diclofenac Sodium (Diclofenac Sodium) 50 Mg Tablet.dr, 1 TAB PO BID, #30 Ref 0 Prescribed by: Radha Christensen APRN on 05/07/171802 Methylprednisolone (Medrol) 4 Mg Tab.ds.pk, 1 PKG PO UD, #1 Prescribed by: Radha Christensen APRN on 05/07/171802 Ondansetron (Ondansetron Odt) 4 Mg Tab.rapdis, 1 TAB PO PRN Q6-8HRS PRN for NAUSEA, #16 Prescribed by: YURY BEDOLLA APRN on 09/29/19 2327 Sulfamethoxazole/Trimethoprim (Bactrim Ds Tablet) 1 Each Tablet, 1 TAB PO BID, #20 Ref 0 Prescribed by: SONALI MARIN on 08/02/14 1132 Tramadol Hcl (Ultram) 50 Mg Tablet, 50 MG PO PRN Q6HRS PRN for PAIN, #20 Ref 0 Prescribed by: SONALI MARIN on 08/02/14 1132 Patient Instructions Patient Instructions f/u psych she was denied psych admit, not SI Justicifation of Admission Dx: Justifications for Admission: Justification of Admission Dx: Yes MARÍA ELENA POSADAS MD May 01, 2020 12:36
--- NOTE | 2020-05-01 13:00 | NUR ---
reviewed discharge instructions with mother and patient. emphasized the need to wear boot when walking or transferring from one place to the other. follow up with Dr. Bernard on at 0900 at his office for possible surgery on Wednesday. redressed r ankle and supplies given to mother and demonstrated dressing change. elevate leg on pillow. attempt to place cam walking boot on donyel. given pain pill for transfer. scripts of Zyprexa and Lortab given to mother. no lines in . dismissed to mother;s home.
== END 2020-05-01 13:20 | disposition home or self-care (01) | DRG 563 ==
LOC: ER 13:39 → 4 NORTH 14:48
PROVIDERS: ADMIT Family Medicine; ATTEND Family Medicine
PROC: 2W3MX1Z Immobilization of Left Lower Extremity using Splint (ICD-10-PCS; principal; 2020-04-28)
DX: S82.851A Displaced trimalleolar fracture of right lower leg, initial encounter for closed fracture (principal); E78.5 Hyperlipidemia, unspecified; F17.210 Nicotine dependence, cigarettes, uncomplicated; F20.9 Schizophrenia, unspecified; F31.9 Bipolar disorder, unspecified; F41.0 Panic disorder [episodic paroxysmal anxiety]; F41.1 Generalized anxiety disorder; Z82.49 Family history of ischemic heart disease and other diseases of the circulatory system; Z20.828 Contact with and (suspected) exposure to other viral communicable diseases; W01.0XXA Fall on same level from slipping, tripping and stumbling without subsequent striking against object, initial encounter; Y93.89 Activity, other specified; Y92.89 Other specified places as the place of occurrence of the external cause; Y99.8 Other external cause status
CPT/HCPCS: 29515; 36415; 71045; 73590; 73610; 73620; 80053; 80307; 81001; 85025; 85610; 85730; 86140; 86850; 86900; 86901; 87086; 87426; 93005; 99285; G0480; J1170; J2405; J3370; J7040; 97116-GP; 97530-GP; 97535-GO; G0378; U0003-CS

== ENCOUNTER 2020-05-17 09:12 | Inpatient (IN) | payer SELFPAY ==
[~2020-05-17] VITALS: Ht 167.6 cm; Wt 100.6 kg
[2020-05-17] VITALS (11 sets, daily range): BP systolic 108–138; BP diastolic 55–103
[~2020-05-17 09:12] MED LIST changes: +DOCU-109 PO; +IV RINGERS,LACTATED 1000ML 1,000 ML IV SCH; +MORPHINE SULFATE 2 MG/ML VIAL. IV PRN; +OLAN5TAB9 PO; +ONDANSETRON PF 4 MG/2 ML VIAL. IV PRN; +PROCHLORPERAZINE 10 MG/2 ML VIAL. IV PRN; +fentaNYL PF VIAL 100 MCG/2 ML VIAL IV PRN
[2020-05-17] MEDS ORDERED: ceFAZolin SODIUM 3 GM in IV DEXTROSE 5% 100ML 100 ML IV PRN (10:15)
[2020-05-17] MEDS ORDERED: MIDAZOLAM HCL/PF 2 MG/2 ML VIAL. ONE (10:23)
[2020-05-17] MEDS ORDERED: LIDOCAINE 2% PF 5 ML VIAL. ONE (10:23)
[2020-05-17] MEDS ORDERED: fentaNYL PF VIAL 100 MCG/2 ML VIAL ONE ×3 (10:23→13:41)
[2020-05-17] MEDS ORDERED: DEXAMETHASONE SOD PHOS 4 MG/ML VIAL ONE (10:23)
[2020-05-17] MEDS ORDERED: PROPOFOL 10 MG/ML (20ML) VIAL. IV ONE (10:23)
[2020-05-17] MEDS ORDERED: ONDANSETRON PF 4 MG/2 ML VIAL. ONE (10:23)
[2020-05-17] MEDS ORDERED: BUPIVACAINE-EPI 0.5%-1:200000 MPF 30 ML VIAL. ONE (11:06)
[2020-05-17] MEDS ORDERED: BUPIVACAINE MPF 0.25% 30 ML VIAL. ONE (11:06)
[2020-05-17] MEDS ORDERED: LABETALOL 20 MG/4 ML DISP.SYRIN. IVP ONE (12:28)
[2020-05-17] MEDS ORDERED: SEVOFLURANE 61 TO 120 MINUTES. IH ONE (12:36)
--- NOTE | 2020-05-17 13:31 | PDOC4 ---
Operative Note Operative Note Date of Procedure: May 17, 2020 Pre-Op Diagnosis: Displaced trimalleolar fracture of right lower leg, initial encounter for closed fracture S82.851A Post-Op Diagnosis: same Procedure: Open treatment trimalleolar ankle fracture, with internal fixation, medial and lateral malleolus without fixation of posterior lip CPT 78379, right ankle Anesthesia Type: General Surgeon: Kristy Bernard MD EBL: 100 mL Specimens Obtained: none Drains: none Complications: none Tourniquet time: 56 minutes Tourniquet pressure: 350 mm Hg Implants: Synthes stainless small fragment 3.5 mm and Synthes large fragment stainless steel Findings: Due to initial soft tissue contraindications to surgery, the fracture is now several weeks old. This required more extensive dissection and removal of soft callus, and was more difficult than the typical fracture to achieve reduction. INDICATIONS FOR PROCEDURE: The patient is a 45-year-old with a displaced unstable right ankle fracture. She initially was treated elsewhere as an outpatient, but unfortunately developed a massive blood-filled fracture blister over the ankle. I cared for her about 2 weeks ago and recommended resolution of the skin issues before attempting surgery because there is such high risk of infection if surgery is attempted while there are blisters present. Her blisters have healed and the skin has re-epithelialized. Unfortunately the fracture is several weeks old at this time. There is still a risk of infection. The patient and I discussed the risks and benefits of operative treatment. Surgical fixation likely will give a better long-term outcome. We talked about the risks of the operative fixation such as the risks of bleeding, infection, blood clots, need for hardware removal, stiffness or other potential surgical or anesthetic complications. All of her questions about surgery were answered and she desired to proceed. Written consent was obtained. PROCEDURE IN DETAIL: The patient was identified in the preoperative holding area. The correct right lower extremity was marked by me. The patient was taken to the operating room, where a general anesthetic was used. Preoperative antibiotics were given intravenously. A timeout procedure was performed. A padded tourniquet was used on the upper right thigh. The limb was prepared in sterile fashion with ChloraPrep solution, and sterile drapes were applied with a sterile glove over the toes and heel. An Esmarch bandage was used to exsanguinate the limb and the tourniquet was inflated. The direct lateral approach to the distal fibula was used. Sharp dissection was used and Bovie electrocautery was used as needed for hemostasis. The fracture was easily identified and exposed. The fracture was gapped open with traction, and fracture hematoma was cleared with curettes, rongeurs and irrigation. I then used longitudinal traction and internal rotation to help reduce the fracture, and a lobster claw bone clamp was used to now reduce the fracture. An interfragmentary lag screw was placed using a threaded hole and a gliding hole, across the fracture site to stabilize it, so that the bone clamp could be remove. I then applied a locking nine-hole LC DC plate laterally. I contoured the very tip of the plate to fit the tip of the distal fibula. I applied cortical screws proximally and cancellous screws and locking screws distally for rigid fixation across the fracture site to stabilize it. Satisfactory reduction and fixation was obtained of the fibula which was confirmed using the image intensifier. The direct medial approach to the medial malleolus was used. Branches of the saphenous vein were cauterized. The fracture was exposed and was unstable. Fracture hematoma was cleared with curettes, rongeurs, and irrigation. The joint was visualized and thorough irrigation of the joint was performed. The fracture was now held reduced with a pointed towel clip style reduction clamp. The fracture was held in preliminary stabilization using 2.5 mm drill bits, and the position of the fracture and the drill bits was confirmed on the small image intensifier. A small image intensifier was used throughout the case, and all images were interpreted by me intraoperatively. Satisfactory reduction and position of the drill bits was confirmed, and then each of the drill bits was replaced with a partially threaded 4.0 mm cancellous screw, one of these with a washer. Satisfactory compression across the fracture was obtained, and final images showed satisfactory reduction and fixation. I now stressed the syndesmosis and the medial clear space in the distal tibiofibular articulation appears widened. I proceeded with syndesmosis fixation. I had my surgical assistant hold the syndesmosis reduced during syndesmosis fixation. 1 of the screws and the plate was removed and replaced with a 4.5 mm cortex screw which crosses all 4 cortices of the tibia and fibula. There was one remaining screw hole in the plate which was near the interfragmentary screw, and I used this for the second syndesmotic screw. Again this is a 4.5 mm cortex screw, with both screw tips extending well beyond the medial cortex of the tibia so that if and when the screws break they will be easier to remove. Finally I reassessed the posterior malleolus radiographically and it appears reduced and stable and does not require additional fixation. The tourniquet was released. Copious saline irrigation was used. Bovie electrocautery was used for hemostasis. Local anesthetic 30 mL of 0.25% bupivacaine with epinephrine with epinephrine was injected into the skin edges. The incision was closed in layers with #0 Vicryl, #2-0 Vicryl and ibis. Xeroform and a sterile dressing and a splint were applied. There were no apparent complications. KRISTY BERNARD MD May 17, 2020 13:31
[2020-05-17] MEDS ORDERED: PROCHLORPERAZINE 10 MG/2 ML VIAL. ONE (13:33)
[2020-05-17] MEDS ORDERED: MORPHINE SULFATE 2 MG/ML VIAL. ONE (13:35)
[2020-05-17] MEDS: MORPHINE SULFATE 2 MG/ML VIAL. IV PRN ×2 (13:37→13:50)
[2020-05-17] MEDS: fentaNYL PF VIAL 100 MCG/2 ML VIAL IV PRN ×4 (13:42→14:31)
[2020-05-17] MEDS ORDERED: POLYETHYLENE GLYCOL 3350 17 GM PACKET. PO PRN (13:45)
[2020-05-17] MEDS ORDERED: fentaNYL PF VIAL 100 MCG/2 ML VIAL IVP PRN (13:45)
[2020-05-17] MEDS ORDERED: DEXTROSE 50% 25 GM / 50ML DISP.SYRIN. IV PRN (13:45)
[2020-05-17] MEDS ORDERED: ONDANSETRON PF 4 MG/2 ML VIAL. IVP PRN (13:45)
[2020-05-17] MEDS ORDERED: oxyCODONE/APAP 5/325 1 TAB TABLET PO PRN (13:45)
[2020-05-17] MEDS ORDERED: hydrALAZINE 20 MG/ML VIAL. IVP PRN (14:15)
[2020-05-17] MEDS ORDERED: hydrALAZINE 20 MG/ML VIAL. ONE (14:28)
[2020-05-17] MEDS ORDERED: HYDROmorphone 2 MG/ML VIAL ONE (14:45)
[2020-05-17] MEDS: HYDROmorphone 2 MG/ML VIAL IV PRN ×3 (14:48→15:20)
[2020-05-17] MEDS: IV 1/2 NORMAL SALINE 1,000 ML IV SCH (15:00)
[2020-05-17] MEDS: ceFAZolin SODIUM 3 GM in IV DEXTROSE 5% 100ML 100 ML IV SCH ×2 (19:22→23:50)
[2020-05-17] MEDS: ASPIRIN ENTERIC COATED 325 MG TABLET.DR. PO SCH (21:51)
[2020-05-17] MEDS: oxyCODONE/APAP 5/325 1 TAB TABLET PO PRN (21:53)
[2020-05-18 03:00] VITALS: BP 141/83
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
[2020-05-18] MEDS: IV 1/2 NORMAL SALINE 1,000 ML IV SCH (04:19)
[2020-05-18] MEDS: ceFAZolin SODIUM 3 GM in IV DEXTROSE 5% 100ML 100 ML IV SCH (05:31)
[2020-05-18] MEDS ORDERED: MAGNESIUM HYDROXIDE 2,400 MG/30 ML ORAL.SUSP. PO PRN (06:00)
[2020-05-18] MEDS: HEPARIN for SUB-Q USE 5,000 UNIT/ML VIAL. SQ SCH ×3 (06:00→22:00)
[2020-05-18] MEDS: oxyCODONE/APAP 5/325 1 TAB TABLET PO PRN ×2 (06:04→14:31)
[2020-05-18 07:00] VITALS: BP 126/77
[2020-05-18] MEDS: MULTIVITAMIN with MINERAL TABLET. PO SCH (09:00)
[2020-05-18] MEDS: SENNOSIDES/DOCUSATE 8.6/50MG TABLET. PO SCH (09:00)
[2020-05-18] MEDS ORDERED: DOCUSATE SODIUM 100 MG CAPSULE. PO SCH (09:00)
[2020-05-18] MEDS: CHOLECALCIFEROL (VITAMIN D3) 1,000 UNIT TABLET PO SCH (09:00)
[2020-05-18] MEDS: DOCUSATE SODIUM 100 MG CAPSULE. PO SCH (09:00)
[2020-05-18] MEDS: OLANZapine 5 MG TABLET PO SCH (09:06)
[2020-05-18 09:52] LABS: BASO % 0 % (0-3); EOS % 0 % (0-3); HEMATOCRIT 35.7 % (36.0-47.0); HEMOGLOBIN 12.1 g/dL (12.0-15.5); LYMPH # 1.1 x10^3/uL (1.0-4.8); LYMPH % 11 % (24-48); MEAN CORPUSCULAR HEMOGLOBIN 34 pg (25-35); MEAN CORPUSCULAR HGB CONC 34 g/dL (31-37); MEAN CORPUSCULAR VOLUME 98 fL (79-100); MONO # 0.8 x10^3/uL (0.0-1.1); MONO % 7 % (0-9); NEUT % 82 % (31-73); PLATELET COUNT 281 x10^3/uL (140-400); RED BLOOD COUNT 3.63 x10^6/uL (3.50-5.40); RED CELL DISTRIBUTION WIDTH 14.6 % (11.5-14.5); WHITE BLOOD COUNT 10.9 x10^3/uL (4.0-11.0)
[2020-05-18 09:56] LABS: ALBUMIN 2.9 g/dL (3.4-5.0); ALBUMIN/GLOBULIN RATIO 0.6 (1.0-1.7); CALCIUM 8.9 mg/dL (8.5-10.1); GFR 71.9; POTASSIUM 3.9 mmol/L (3.5-5.1); TOTAL BILIRUBIN 0.2 mg/dL (0.2-1.0); TOTAL PROTEIN 7.6 g/dL (6.4-8.2)
[2020-05-18 11:00] VITALS: BP 128/78
[2020-05-18 15:00] VITALS: BP 120/69
[2020-05-18] MEDS ORDERED: BISACODYL 10 MG SUPP.RECT. PR PRN (16:00)
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
--- NOTE | 2020-05-18 17:46 | NUR ---
Patient was sitting in bedside chair with urine on the floor. Cast to RLE soaked in urine, and patient already removed half of it. Removed rest of cast and wrapping and re-applied xeroform, ABD, and kerlix. Notified Dr. Bernard, he stated he would re-splint it tomorrow. Will continue to monitor.
[2020-05-18 19:15] VITALS: BP 108/76
[2020-05-18] MEDS: ASPIRIN ENTERIC COATED 325 MG TABLET.DR. PO SCH (21:00)
[2020-05-18 23:00] VITALS: BP 123/82
[2020-05-19] MEDS: oxyCODONE/APAP 5/325 1 TAB TABLET PO PRN ×4 (01:21→23:40)
[2020-05-19] MEDS: MORPHINE SULFATE 2 MG/ML VIAL. IVP PRN (01:55)
[2020-05-19 03:32] VITALS: BP 130/72
[2020-05-19] MEDS: HEPARIN for SUB-Q USE 5,000 UNIT/ML VIAL. SQ SCH ×3 (05:56→21:23)
[2020-05-19] MEDS: SENNOSIDES/DOCUSATE 8.6/50MG TABLET. PO SCH (06:36)
[2020-05-19] MEDS: DOCUSATE SODIUM 100 MG CAPSULE. PO SCH (06:36)
[2020-05-19] MEDS: MULTIVITAMIN with MINERAL TABLET. PO SCH (06:36)
[2020-05-19] MEDS: CHOLECALCIFEROL (VITAMIN D3) 1,000 UNIT TABLET PO SCH (06:36)
[2020-05-19 07:00] VITALS: BP 129/94
[2020-05-19] MEDS: OLANZapine 5 MG TABLET PO SCH (08:02)
[2020-05-19 08:20] LABS: CALCIUM 8.5 mg/dL (8.5-10.1); CREATININE 0.9 mg/dL (0.6-1.0); GFR 81.2; POTASSIUM 4.2 mmol/L (3.5-5.1)
--- NOTE | 2020-05-19 10:59 | PDOC ---
PROGRESS NOTES Date of Service DATE: 05/19/20 TIME: 10:58 Subjective Subjective She urinated on her splint so it has been removed and changed. The wound was cleansed. There was no evidence of infection. Objective Vital Signs Vital Signs Date Time Temp Pulse Resp B/P (MAP) Pulse Ox O2 Delivery O2 Flow Rate FiO2 05/19/20 08:58 99 Room Air 05/19/20 07:00 97.8 79 18 129/94 (106) 97.8 05/17/20 19:45 2.0 Physical Exam The current dressing is dry. The ankle has good alignment with minimal swelling. No evidence of infection or DVT. Labs Laboratory Tests Test 05/18/20 08:35 05/19/20 07:00 White Blood Count 10.9 x10^3/uL (4.0-11.0) Red Blood Count 3.63 x10^6/uL (3.50-5.40) Hemoglobin 12.1 g/dL (12.0-15.5) Hematocrit 35.7 % (36.0-47.0) Mean Corpuscular Volume 98 fL (79-100) Mean Corpuscular Hemoglobin 34 pg (25-35) Mean Corpuscular Hemoglobin Concent 34 g/dL (31-37) Red Cell Distribution Width 14.6 % (11.5-14.5) Platelet Count 281 x10^3/uL (140-400) Neutrophils (%) (Auto) 82 % (31-73) Lymphocytes (%) (Auto) 11 % (24-48) Monocytes (%) (Auto) 7 % (0-9) Eosinophils (%) (Auto) 0 % (0-3) Basophils (%) (Auto) 0 % (0-3) Neutrophils # (Auto) 9.0 x10^3/uL (1.8-7.7) Lymphocytes # (Auto) 1.1 x10^3/uL (1.0-4.8) Monocytes # (Auto) 0.8 x10^3/uL (0.0-1.1) Eosinophils # (Auto) 0.0 x10^3/uL (0.0-0.7) Basophils # (Auto) 0.0 x10^3/uL (0.0-0.2) Sodium Level 141 mmol/L (136-145) 143 mmol/L (136-145) Potassium Level 3.9 mmol/L (3.5-5.1) 4.2 mmol/L (3.5-5.1) Chloride Level 105 mmol/L (98-107) 106 mmol/L (98-107) Carbon Dioxide Level 29 mmol/L (21-32) 31 mmol/L (21-32) Anion Gap 7 (6-14) 6 (6-14) Blood Urea Nitrogen 10 mg/dL (7-20) 8 mg/dL (7-20) Creatinine 1.0 mg/dL (0.6-1.0) 0.9 mg/dL (0.6-1.0) Estimated GFR (Cockcroft-Gault) 71.9 81.2 BUN/Creatinine Ratio 10 (6-20) Glucose Level 104 mg/dL (70-99) 86 mg/dL (70-99) Calcium Level 8.9 mg/dL (8.5-10.1) 8.5 mg/dL (8.5-10.1) Total Bilirubin 0.2 mg/dL (0.2-1.0) Aspartate Amino Transf (AST/SGOT) 15 U/L (15-37) Alanine Aminotransferase (ALT/SGPT) 11 U/L (14-59) Alkaline Phosphatase 73 U/L (46-116) Total Protein 7.6 g/dL (6.4-8.2) Albumin 2.9 g/dL (3.4-5.0) Albumin/Globulin Ratio 0.6 (1.0-1.7) Laboratory Tests Test 05/19/20 07:00 Sodium Level 143 mmol/L (136-145) Potassium Level 4.2 mmol/L (3.5-5.1) Chloride Level 106 mmol/L (98-107) Carbon Dioxide Level 31 mmol/L (21-32) Anion Gap 6 (6-14) Blood Urea Nitrogen 8 mg/dL (7-20) Creatinine 0.9 mg/dL (0.6-1.0) Estimated GFR (Cockcroft-Gault) 81.2 Glucose Level 86 mg/dL (70-99) Calcium Level 8.5 mg/dL (8.5-10.1) Assessment Assessment POD# 2 ORIF ankle Plan Plan of Care I will order a cam walker boot from [facility]. PT/OT. Discharge planning. She likely needs half-way due to schizophrenia, ankle fracture, inability to care for herself. Justicifation of Admission Dx: Justifications for Admission: Justification of Admission Dx: Yes KRISTY BURTON MD May 19, 2020 10:59
[2020-05-19 11:00] VITALS: BP 132/84
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
[2020-05-19 15:00] VITALS: BP 121/90
--- NOTE | 2020-05-19 15:23 | NUR ---
Patient c/o severe headaches, been having for "awhile now". Notified Dr. Prince, new order for CT of head. Patient aware.
[2020-05-19 19:00] VITALS: BP 108/81
--- NOTE | 2020-05-19 19:45 | RAD ---
CT HEAD WO CONTRAST Date: 05/19/2020 3:23 PM Clinical Indication: severe headaches Comparison: None. Technique: 5 mm axial tomographic images were obtained of the head without contrast. These were viewed on brain and bone windows. One or more of the following dose reduction techniques were utilized: Automated exposure control (AEC), Adjustment of mA and/or kV according to patient size, Use of iterative reconstruction technique such as ASiR, CT scan done according to ALARA and image gently/image wisely Findings: Large low-attenuation suprasellar mass with areas of coarse calcification measuring 3.5 x 3.1 x 3.2 cm. There is effacement of the third ventricle with dilatation of both lateral ventricles. Bilateral periventricular hypoattenuation likely represents transependymal flow of CSF. The visualized paranasal sinuses are normal. The visualized portions of the orbits and globes are normal. The mastoid air cells are clear. The top lift cutter topogram shows no lytic lesion or fracture. 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 Urgent neurosurgical consultation is recommended. Contrast-enhanced MRI is recommended. FOR INTERNAL CODING PURPOSES Critical result: Findings discussed with the patient's nurse, Bam at 05/19/2020 7:38 PM. RESULT CODE: (C) Electronically signed by: Steve Cantu MD (05/19/2020 7:42 PM) [facility]
[2020-05-19] MEDS: ASPIRIN ENTERIC COATED 325 MG TABLET.DR. PO SCH (21:00)
[2020-05-19 23:00] VITALS: BP 139/85
--- NOTE | 2020-05-19 23:45 | NUR ---
Notified of Critical Radiology result indicating intracranial mass at [address] Noel and received orders to begin Q2 neuro checks on patient and notify neurosurgery of findings. Neurosurgery Nurse Practitioner Yesenia returned page and gave direction to transfer patient to ICU once becomes available for closer monitoring per Dr. Landis. Also scheduled MRI in the morning with and without contrast. Patient family aware of update as well as patient. Patient displays no change from baseline in reference to previous hospital stay and previous night as well. Family said patient has been "different" for about 4-6 months, complaining of headaches, sometimes severe in nature. Patients attitude sometimes aggressive and patient yells out, per family. Patient talks to imaginary people who are not present in room. Patient does have some nearsighted issues, trouble placing straw back in cup, but states she wears glasses for reading and to see better close up. Patient aware of name, day, age, date of . HGN test result smooth tracking, and pupils dilate and react equally to light and are equal in size. Will continue to monitor patient at this time.
[2020-05-20] MEDS: oxyCODONE/APAP 5/325 1 TAB TABLET PO PRN (00:40)
[2020-05-20 03:00] VITALS: BP 146/91
[2020-05-20 05:08] LABS: HEMOGLOBIN A1C 5.6 % (4.8-5.6)
[2020-05-20] MEDS: HEPARIN for SUB-Q USE 5,000 UNIT/ML VIAL. SQ SCH ×2 (05:44→14:12)
--- NOTE | 2020-05-20 08:00 | NUR ---
pt transferred to MRI at 0800 and then to ICU after that. CYRUS Plummer met this RN in MRI to further assist pts needs during scan if needed. report given via phone and he stated he had no further questions for me. family contacted and informed on transfer.
[2020-05-20] MEDS ORDERED: GADOTERATE 7.5 MMOL/15ML VIAL. IVP ONE (08:15)
[2020-05-20 08:29] LABS: CREATININE 0.9 mg/dL (0.6-1.0); GFR 81.2; POTASSIUM 3.9 mmol/L (3.5-5.1)
[2020-05-20 08:34] LABS: CALCIUM 8.7 mg/dL (8.5-10.1)
[2020-05-20] MEDS: DOCUSATE SODIUM 100 MG CAPSULE. PO SCH (09:00)
[2020-05-20] MEDS: SENNOSIDES/DOCUSATE 8.6/50MG TABLET. PO SCH (09:00)
[2020-05-20] MEDS: MULTIVITAMIN with MINERAL TABLET. PO SCH (09:00)
[2020-05-20] MEDS: CHOLECALCIFEROL (VITAMIN D3) 1,000 UNIT TABLET PO SCH (09:00)
[2020-05-20] MEDS ORDERED: ACETAMINOPHEN 500 MG TABLET PO PRN (09:15)
[2020-05-20] MEDS: OLANZapine 5 MG TABLET PO SCH (09:19)
[2020-05-20] MEDS: MORPHINE SULFATE 2 MG/ML VIAL. IVP PRN (09:48)
--- NOTE | 2020-05-20 10:10 | PDOC ---
Provider Note Date of Service: DATE: 05/20/20 TIME: 10:09 Provider Note Patient seen and examined CT and MRI brain reviewed will cloud images to LUIS DANIEL Gray/[place] RN Justifications for Admission Other Justification ALEX BEATTY MD May 20, 2020 10:10
[2020-05-20 11:00] VITALS: BP 141/80
[2020-05-20] MEDS: MORPHINE SULFATE 4 MG/ML VIAL. IVP PRN ×2 (11:37→11:39)
--- NOTE | 2020-05-20 11:58 | PDOC ---
ORTHO PROGRESS NOTES DATE: 05/20/20 TIME: 11:53 Subjective Patient has been transferred to the ICU r/t findings of brain mass recently found.No pain reported concerning right ankle fracture. Post-op Day: 3 Procedure ORIF R Trimalleolar ankle fracture Vitals Vital Signs Date Time Temp Pulse Resp B/P (MAP) Pulse Ox O2 Delivery O2 Flow Rate FiO2 05/20/20 11:39 18 98 Room Air 05/20/20 11:00 97.8 60 141/80 (100) 97.8 Labs Laboratory Tests Test 05/19/20 07:00 05/20/20 07:40 Sodium Level 143 mmol/L (136-145) 140 mmol/L (136-145) Potassium Level 4.2 mmol/L (3.5-5.1) 3.9 mmol/L (3.5-5.1) Chloride Level 106 mmol/L (98-107) 102 mmol/L (98-107) Carbon Dioxide Level 31 mmol/L (21-32) 30 mmol/L (21-32) Anion Gap 6 (6-14) 8 (6-14) Blood Urea Nitrogen 8 mg/dL (7-20) 9 mg/dL (7-20) Creatinine 0.9 mg/dL (0.6-1.0) 0.9 mg/dL (0.6-1.0) Estimated GFR (Cockcroft-Gault) 81.2 81.2 Glucose Level 86 mg/dL (70-99) 106 mg/dL (70-99) Calcium Level 8.5 mg/dL (8.5-10.1) 8.7 mg/dL (8.5-10.1) Laboratory Tests Test 05/20/20 07:40 Sodium Level 140 mmol/L (136-145) Potassium Level 3.9 mmol/L (3.5-5.1) Chloride Level 102 mmol/L (98-107) Carbon Dioxide Level 30 mmol/L (21-32) Anion Gap 8 (6-14) Blood Urea Nitrogen 9 mg/dL (7-20) Creatinine 0.9 mg/dL (0.6-1.0) Estimated GFR (Cockcroft-Gault) 81.2 Glucose Level 106 mg/dL (70-99) Calcium Level 8.7 mg/dL (8.5-10.1) Notes Awake and following directions, Assessment and Plan POD # 3 S/P ORIF Right ankle fracture Motor and sensation intact dressing dry and intact foot hanging off bed when arrived in room. Awaiting Neuro consult ANDREA LOPEZ APRN May 20, 2020 11:58
[2020-05-20] MEDS ORDERED: HYDROmorphone 2 MG/ML VIAL IVP PRN (12:30)
--- NOTE | 2020-05-20 14:03 | NUR ---
SS following for discharge planning. SS reviewed pt chart and discussed with pt RN. Pt is from home and is currently on room air. Pt transferred to ICU. Pt had Brain MRI and has large mass. Request for [facility] transfer requested. SS contacted transfer team, , and spoke with Lorenza, . SS faxed requested clinical, fax [phone]. Images clouded to . Packet and transfer form on the chart. SS will continue to follow for discharge planning.
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
[2020-05-20 16:00] VITALS: BP 110/74
--- NOTE | 2020-05-20 16:00 | PDOC3 ---
Discharge Summary Visit Information Date of Admission: May 18, 2020 Date of Discharge: May 20, 2020 Final Diagnosis Problems Medical Problems: (1) Displaced trimalleolar fracture of right lower leg, initial encounter for closed fracture Status: Acute (2) Brain Mass Status: Acute Brief Hospital Course Allergies Allergies Coded Allergies Type Severity Reaction Last Updated Verified codeine Allergy Intermediate 05/17/20 Yes Vital Signs Vital Signs Date Time Temp Pulse Resp B/P (MAP) Pulse Ox O2 Delivery O2 Flow Rate FiO2 05/20/20 15:00 70 18 100 Room Air 05/20/20 11:00 97.8 97.8 Lab Results Laboratory Tests Test 05/19/20 07:00 05/20/20 07:40 Sodium Level 143 mmol/L (136-145) 140 mmol/L (136-145) Potassium Level 4.2 mmol/L (3.5-5.1) 3.9 mmol/L (3.5-5.1) Chloride Level 106 mmol/L (98-107) 102 mmol/L (98-107) Carbon Dioxide Level 31 mmol/L (21-32) 30 mmol/L (21-32) Anion Gap 6 (6-14) 8 (6-14) Blood Urea Nitrogen 8 mg/dL (7-20) 9 mg/dL (7-20) Creatinine 0.9 mg/dL (0.6-1.0) 0.9 mg/dL (0.6-1.0) Estimated GFR (Cockcroft-Gault) 81.2 81.2 Glucose Level 86 mg/dL (70-99) 106 mg/dL (70-99) Calcium Level 8.5 mg/dL (8.5-10.1) 8.7 mg/dL (8.5-10.1) Laboratory Tests Test 05/20/20 07:40 Sodium Level 140 mmol/L (136-145) Potassium Level 3.9 mmol/L (3.5-5.1) Chloride Level 102 mmol/L (98-107) Carbon Dioxide Level 30 mmol/L (21-32) Anion Gap 8 (6-14) Blood Urea Nitrogen 9 mg/dL (7-20) Creatinine 0.9 mg/dL (0.6-1.0) Estimated GFR (Cockcroft-Gault) 81.2 Glucose Level 106 mg/dL (70-99) Calcium Level 8.7 mg/dL (8.5-10.1) Brief Hospital Course Ms. Rothman is a 45 old female who presented with right ankle fracture. He had ORIF of right trimalleolar ankle fracture. CT head was obtain due to worsening confusion that showed 3.5 cm brain mass. Consults to Neurosurgery, who recommended transfer to for higher level of care. Stable for transfer on 05/20/2020. Assessment Assessment Worsening confusion and brain mass seen on CT. Transfer to for higher level of care. Discharge Information Condition at Discharge: Stable Disposition/Orders: D/C to Another Facility Scheduled Docusate Sodium (Colace) 100 Mg Capsule, 1 MG PO DAILY for stool softener, #30 Prescribed by: MARÍA ELENA POSADAS on 05/01/20908 Last Action: Continued on 05/17/202017 by CINDY HARMON MD Olanzapine (Olanzapine) 5 Mg Tablet, 5 MG PO DAILY for bipolar, #30 Prescribed by: MARÍA ELENA POSADAS on 05/01/20908 Last Taken: Unknown Dose on 05/17/20614 Last Action: Continued on 05/17/202017 by CINDY HARMON MD Scheduled PRN Hydrocodone/Apap 5-325 ([place] 5-325 Tablet) 1 Each Tablet, 1 TAB PO PRN Q6HRS PRN for PAIN for 3 Days, #30 Ref 0 Prescribed by: MARÍA ELENA POSADAS on 05/01/20908 Last Taken: Unknown Dose on 05/17/20614 Last Action: HELD on 05/17/202017 by CINDY HARMON MD Justicifation of Admission Dx: Justifications for Admission: Justification of Admission Dx: Yes CINDY HARMON MD May 20, 2020 16:00
--- NOTE | 2020-05-20 16:23 | RAD ---
MRI Brain with and without contrast History:Intracranial mass Technique: Multiplanar, multi sequential pre and postcontrast MR imaging was performed of the brain. Comparison: Head CT May 19, 2020 Findings: There is motion degradation. There is again large suprasellar T2 hyperintense lesion with extent to the sella at which there is heterogeneous enhancement present. Accurate characterization of the area of enhancement is limited due to motion, focus of heterogeneous enhancement in the sellar and suprasellar region estimated about 1.2 cm CC by 1 cm AP by 1.3 cm transverse. As best seen on axial image 8 series 10 and coronal image 15 series 13, there is also somewhat more nodular appearing enhancement at the inferior margin of the suprasellar component of the lesion measuring about 0.7 cm transverse by 0.5 similar AP. There is also thin peripheral enhancement about the suprasellar T2 and FLAIR hyperintense fluidlike component, this component of the lesion measuring about 3.6 cm AP by 3.5 cm transverse by 3.8 cm CC. Suprasellar component extends to the region of the effaced third ventricle. There is fairly severe hydrocephalus. Right lateral ventricle measures about 3 cm transverse, the left about 1 cm transverse. There is T2 and FLAIR hyperintense signal about the ventricles likely due to transependymal CSF flow. The fourth ventricle is not dilated. Suprasellar component of the mass contacts the medial superior margins of the supraclinoid internal carotid arteries bilaterally, also likely degree of displacement of the anterior cerebral arteries which are poorly defined. There is also likely mass effect upon the displaced optic chiasm although poorly defined due to motion and on the large [id number] images. There is no evidence of recent infarct. There is deviation of the septum pellucidum about 0.4 cm to the left due to the dilated right lateral ventricle. There is preservation of major intracranial flow-voids at the skull base. Mastoid air cells are mostly aerated, minimal thickening on the left. There is disconjugate gaze. Impression: 1. As seen on CT, there is sellar and suprasellar mass, suprasellar cystic component and areas of enhancement as described. 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 There is resultant effacement of the third ventricle and obstructive hydrocephalus with transependymal CSF flow. Mass is seen about the adjacent vasculature and likely displacement of the poorly defined optic chiasm. Electronically signed by: Steve Garcia MD (05/20/2020 4:20 PM) [id number]
[2020-05-20 17:00] VITALS: BP 125/75
[2020-05-20 18:00] VITALS: BP 120/70
== END 2020-05-20 19:00 | disposition short-term general hospital (02) | DRG 494 ==
LOC: SURG 09:12 → 4 NORTH 14:29 → OBSVTOIN 05-19 22:10 → 1 WEST ICU 05-20 08:00
PROVIDERS: ADMIT Orthopaedic Surgery; ATTEND Orthopaedic Surgery
PROC: 0QSG0ZZ Reposition Right Tibia, Open Approach (ICD-10-PCS; 2020-05-17)
PROC: 0QSJ04Z Reposition Right Fibula with Internal Fixation Device, Open Approach (ICD-10-PCS; principal; 2020-05-17 12:30)
DX: S82.851A Displaced trimalleolar fracture of right lower leg, initial encounter for closed fracture (principal); G93.9 Disorder of brain, unspecified; Z82.49 Family history of ischemic heart disease and other diseases of the circulatory system; F31.9 Bipolar disorder, unspecified; F20.9 Schizophrenia, unspecified; F17.210 Nicotine dependence, cigarettes, uncomplicated; W18.39XA Other fall on same level, initial encounter; E78.5 Hyperlipidemia, unspecified; F41.9 Anxiety disorder, unspecified; Z20.828 Contact with and (suspected) exposure to other viral communicable diseases; Z79.899 Other long term (current) drug therapy; Y93.89 Activity, other specified; Y92.89 Other specified places as the place of occurrence of the external cause; Y99.8 Other external cause status
CPT/HCPCS: 36415; 70450; 70553; 80048; 80053; 81025; 82306; 83036; 85025; 87426; A7015; A9575; C1713; G0378; G0379; J0360; J0690; J0780; J1100; J1170; J1644; J2250; J2270; J2405; J2704; J3010; J3490; J7060; J7120; U0003-CS

== ENCOUNTER 2020-08-26 23:38 | Emergency (ER) | payer OTHER ==
[~2020-08-26] VITALS: Ht 167.6 cm; Wt 104.5 kg
[~2020-08-26 23:38] MED LIST changes: -IV RINGERS,LACTATED 1000ML 1,000 ML IV SCH; -MORPHINE SULFATE 2 MG/ML VIAL. IV PRN; -ONDANSETRON PF 4 MG/2 ML VIAL. IV PRN; -PROCHLORPERAZINE 10 MG/2 ML VIAL. IV PRN; -fentaNYL PF VIAL 100 MCG/2 ML VIAL IV PRN
[2020-08-27 00:05] VITALS: BP 143/92
--- NOTE | 2020-08-27 00:20 | ED.ADGEN ---
Past Medical History Past Medical History: Anxiety Past Surgical History: No Surgical History Smoking Status: Never Smoker Alcohol Use: None Drug Use: None Social History Narrative: MARIJUANA WITHIN 48 HOURS. General Adult EDM: Chief Complaint: SORE THROAT HPI: HPI: Patient is a 45 year old sore throat for 3 days. Patient was recently hospitalized with Covid at [facility] but denies any intubation. Does not take any medications for the pain. She had a fever earlier. No cough, congestion. Denies any neck rigidity or pain in her neck. States she had an episode of vomiting due to the pain. Denies any blood in her vomitus. Says she is still able to tolerate p.o. just with pain. Review of Systems: Review of Systems: Constitutional: Denies fever or chills. [] Eyes: Denies change in visual acuity. [] HENT: Denies nasal congestion but has sore throat Respiratory: Denies cough or shortness of breath. [] Cardiovascular: Denies chest pain or edema. [] GI: Denies abdominal pain, nausea, vomiting, bloody stools or diarrhea. [] : Denies dysuria. [] Musculoskeletal: Denies back pain or joint pain. [] Integument: Denies rash. [] Neurologic: Denies headache, focal weakness or sensory changes. [] Endocrine: Denies polyuria or polydipsia. [] Lymphatic: Denies swollen glands. [] Psychiatric: Denies depression or anxiety. [] Current Medications: Current Medications Medications (Trade) Dose Ordered Sig/Olvin Start Time Stop Time Status Last Admin Dose Admin Dexamethasone (Decadron) 10 mg 1X ONCE 08/27/20 00:30 08/27/20 00:31 08/27/20 00:20 10 MG Ibuprofen (Motrin) 800 mg 1X ONCE 08/27/20 00:30 08/27/20 00:31 08/27/20 00:19 800 MG Allergies: Allergies: Allergies Coded Allergies Type Severity Reaction Last Updated Verified codeine Allergy Intermediate 05/17/20 Yes Physical Exam: PE: Constitutional: Well developed, well nourished, no acute distress, non-toxic appearance. [] HENT: Normocephalic, atraumatic, bilateral external ears normal, oropharynx unremarkable, tonsils nonenlarged and symmetric, uvula midline, no neck rigidity, no cervical lymphadenopathy Eyes: PERRLA, EOMI, conjunctiva normal, no discharge. [] Neck: Normal range of motion, no tenderness, supple, no stridor. [] Cardiovascular:Heart rate regular rhythm, no murmur [] Lungs & Thorax: Bilateral breath sounds clear to auscultation [] Abdomen: Bowel sounds normal, soft, no tenderness, no masses, no pulsatile masses. [] Skin: Warm, dry, no erythema, no rash. [] Back: No tenderness, no CVA tenderness. [] Extremities: No tenderness, no cyanosis, no clubbing, ROM intact, no edema. [] Neurologic: Alert and oriented X 3, normal motor function, normal sensory function, no focal deficits noted. [] Psychologic: Affect normal, judgement normal, mood normal. [] Current Patient Data: Vital Signs: Vital Signs Date Time Temp Pulse Resp B/P (MAP) Pulse Ox O2 Delivery O2 Flow Rate FiO2 08/27/20 00:05 99.2 116 20 143/92 (109) 98 Room Air 99.2 EKG: EKG: [] Heart Score: Risk Factors: Risk Factors: DM, Current or recent (<one month) smoker, HTN, HLP, family history of CAD, obesity. Risk Scores: Score 0 - 3: 2.5% MACE over next 6 weeks - Discharge Home Score 4 - 6: 20.3% MACE over next 6 weeks - Admit for Clinical Observation Score 7 - 10: 72.7% MACE over next 6 weeks - Early Invasive Strategies Radiology/Procedures: Radiology/Procedures: [] Course & Med Decision Making: Course & Med Decision Making Pertinent Labs and Imaging studies reviewed. (See chart for details) [] Dragon Disclaimer: Dragon Disclaimer: This electronic medical record was generated, in whole or in part, using a voice recognition dictation system. Departure Departure Impression: Primary Impression: Sore throat Disposition: 01 DC HOME SELF CARE/HOMELESS Condition: STABLE Referrals: NO PCP (PCP) Patient Instructions: Sore Throat, [id number] TONYA HALE MD Aug 27, 2020 00:20
[2020-08-27] MEDS ORDERED: DEXAMETHASONE 4 MG TABLET PO ONE (00:30)
[2020-08-27] MEDS ORDERED: IBUPROFEN 400 MG TABLET. PO ONE (00:30)
== END 2020-08-27 00:30 | disposition home or self-care (01) ==
LOC: ER 23:38
DX: J02.9 Acute pharyngitis, unspecified (principal); R11.10 Vomiting, unspecified
CPT/HCPCS: 99284

== ENCOUNTER 2020-11-16 10:52 | Emergency (ER) | payer OTHER ==
[~2020-11-16] VITALS: Ht 167.6 cm; Wt 89.0 kg
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
[2020-11-16] MEDS ORDERED: HYDROcodone/APAP 5/325MG 1 TAB TABLET PO ONE (11:30)
--- NOTE | 2020-11-16 11:48 | RAD ---
Left foot 3 views 11/16/2020. Reason for exam: Pain and swelling. No history of trauma is given. No fracture or dislocation is seen. There is suggestion of diffuse soft tissue swelling, most promine nt near the tibiotalar joint level. There is no obvious joint effusion. IMPRESSION: No acute bony abnormality. Left foot 3 views: No fracture or dislocation is seen. There is some soft tissue swelling. Joint spac es are well maintained, and no destructive process or foreign body is seen. IMPRESSION: No apparent acute bony abnormality. Electronically signed by: Levar Portillo Jr., MD (11/16/2020 11:46 AM) [id number]
--- NOTE | 2020-11-16 12:56 | RAD ---
Ultrasound venous system of the left lower extremity 11/16/2020. Reason for exam: Swelling. Color Doppler and spectral waveform analysis was performed along with real-time grayscale technique. Deep veins of the left lower extremity show normal compressibility and normal Doppler flow and augmen tation of flow extending from the common femoral segment to the popliteal segment. The visualized marciano f veins also appear normal. IMPRESSION: No evidence of DVT. Electronically signed by: Levar Portillo Jr., MD (11/16/2020 12:53 PM) [id number]
[2020-11-16] MEDS ORDERED: IV NORMAL SALINE 1000ML BAG 1,000 ML IV ONE (13:15)
[2020-11-16 13:31] LABS: BASO % 1 % (0-3); EOS # 0.1 x10^3/uL (0.0-0.7); EOS % 2 % (0-3); HEMATOCRIT 29.3 % (36.0-47.0); HEMOGLOBIN 9.3 g/dL (12.0-15.5); LYMPH # 1.2 x10^3/uL (1.0-4.8); LYMPH % 21 % (24-48); MEAN CORPUSCULAR HEMOGLOBIN 25 pg (25-35); MEAN CORPUSCULAR HGB CONC 32 g/dL (31-37); MEAN CORPUSCULAR VOLUME 78 fL (79-100); MONO # 0.5 x10^3/uL (0.0-1.1); MONO % 9 % (0-9); NEUT # 3.7 x10^3/uL (1.8-7.7); NEUT % 67 % (31-73); PLATELET COUNT 336 x10^3/uL (140-400); RED BLOOD COUNT 3.76 x10^6/uL (3.50-5.40); RED CELL DISTRIBUTION WIDTH 21.1 % (11.5-14.5); WHITE BLOOD COUNT 5.6 x10^3/uL (4.0-11.0)
[2020-11-16 13:32] VITALS: BP 133/82
[2020-11-16 13:48] LABS: CALCIUM 8.7 mg/dL (8.5-10.1)
[2020-11-16 13:49] LABS: GFR 71.9; POTASSIUM 3.7 mmol/L (3.5-5.1)
[2020-11-16 13:51] LABS: ALBUMIN 2.8 g/dL (3.4-5.0); ALBUMIN/GLOBULIN RATIO 0.7 (1.0-1.7); MAGNESIUM 1.9 mg/dL (1.8-2.4); TOTAL BILIRUBIN 0.4 mg/dL (0.2-1.0); TOTAL PROTEIN 7.1 g/dL (6.4-8.2)
[2020-11-16] MEDS ORDERED: IOHEXOL 350 MG/ML 100 ML VIAL. IV ONE (14:00)
[2020-11-16] MEDS ORDERED: CONTRAST GIVEN. MC PRN (14:00)
[2020-11-16 14:12] LABS: ANISOCYTOSIS MOD; HYPOCHROMIA SLIGHT; PLT ESTIMATE ADEQUATE (ADEQUATE); POIKILOCYTOSIS SLIGHT
--- NOTE | 2020-11-16 14:33 | RAD ---
CTA chest with and without contrast 11/16/2020. Reason for exam: Shortness of breath with exertion. Helical thin section images were performed. MIP reconstructions were obtained. Exposure: One or more of the following individualized dose reduction techniques were utilized for this examination: 1. Aut omated exposure control 2. Adjustment of the mA and/or kV according to patient size 3. Use of itera tive reconstruction technique. FINDINGS: There is mild dependent atelectasis in the left lower lobe. The lungs otherwise are clear. The central airways appear normal. There is no apparent adenopathy. There is calcified mediastinal no ellen likely related to prior granulomatous infection. Evaluation of the pulmonary arterial tree shows only modest opacification of the pulmonary artery bra nches. No abnormal filling defect is seen. Evaluation of the smaller peripheral branches is limited. Images through the upper abdomen show a cyst in the left kidney. There is probably some fatty infiltr ation the liver. IMPRESSION: No evidence of pulmonary embolism, although evaluation for smaller emboli is limited by t he modest contrast opacification. No acute abnormality is identified otherwise. Electronically signed by: Levar Portillo Jr., MD (11/16/2020 2:31 PM) [id number]
--- NOTE | 2020-11-16 15:31 | EKG ---
[facility] [address] [place] [address] Test Date: 2020-11-16 Test Time: 13:31:05 Pat Name: SABRINA RICKETTS Department: Room: Gender: F Assistant Controller: : 1975 Requested By: JUAN HERNÁNDEZ Order Number: [id number] Reading MD: Measurements Intervals [place] Rate: 98 P: 45 MD: 130 QRS: 9 QRSD: 82 T: 249 QT: 378 QTc: 485 Interpretive Statements SINUS RHYTHM T ABNORMALITY IN ANTERIOR LEADS INFERIOR LEADS PROLONGED QT ABNORMAL ECG RI6.02 No previous ECG available for comparison
== END 2020-11-16 15:30 | disposition home or self-care (01) ==
LOC: ER 10:52
DX: M79.605 Pain in left leg (principal); R22.42 Localized swelling, mass and lump, left lower limb; M79.672 Pain in left foot; M25.572 Pain in left ankle and joints of left foot; R06.02 Shortness of breath; I10 Essential (primary) hypertension; Z88.5 Allergy status to narcotic agent
CPT/HCPCS: 36415; 71275; 73610; 73630; 80053; 83735; 83880; 85025; 93005; 93971; 96360; 99285; J7030; Q9967

== ENCOUNTER 2021-06-04 19:46 | Emergency (ER) | payer OTHER ==
[~2021-06-04] VITALS: Ht 165.1 cm; Wt 100.0 kg
[~2021-06-04 19:46] MED LIST changes: +OLAN5TAB67 PO; -OLAN5TAB9 PO
[2021-06-04 23:02] VITALS: BP 116/86
== END 2021-06-05 02:30 | disposition left against medical advice (07) ==
LOC: ER 19:46
DX: R22.43 Localized swelling, mass and lump, lower limb, bilateral (principal); Z53.21 Procedure and treatment not carried out due to patient leaving prior to being seen by health care provider

== ENCOUNTER 2021-06-10 08:45 | Emergency (ER) | payer OTHER ==
[~2021-06-10] VITALS: Ht 165.1 cm; Wt 90.9 kg
--- NOTE | 2021-06-10 09:47 | PHYS DOC ---
Past Medical History Past Medical History: Anxiety, Hypertension Additional Past Medical Histor: Brain tumor, "psoriasis or eczema, I don't remember which" Past Surgical History: Other Additional Past Surgical Histo: Right lower extremity surgery and brain tumor removed Smoking Status: Never Smoker Alcohol Use: None Drug Use: None General Adult EDM: Chief Complaint: LOWER EXTREMITY SWELLING HPI: HPI: Patient is a 46 year old female with history of obesity, hypothyroidism, hypertension, previous ORIF of right ankle fracture who presents with swelling in bilateral legs. Noticed this over the past couple of days. States that her right ankle, which has been painful since her surgery has been slightly more uncomfortable since swelling started. She does have "psoriasis or eczema" over the right lower extremity which has been longstanding and unchanged. No other new skin changes. She does have some mild discomfort in her left ankle where swelling is also present. No fevers or chills. She noted that she had to cut a ring off of her finger last week, because it was also swollen. Does report a nighttime cough. Denies shortness of breath or orthopnea. She does report "little bit of chest pain." She has a difficult time describing the chest pain. Review of Systems: Review of Systems: Constitutional: Denies fever or chills. [] Eyes: Denies change in visual acuity. [] HENT: Denies nasal congestion or sore throat. [] Respiratory: Reports nighttime cough. Denies shortness of breath. [] Cardiovascular: Reports chest pain and lower extremity edema. [] GI: Denies abdominal pain, nausea, vomiting, bloody stools or diarrhea. [] : Denies dysuria. [] Musculoskeletal: Denies back pain or joint pain. [] Integument: Reports chronic rash [] Neurologic: Denies headache, focal weakness or sensory changes. [] Endocrine: Denies polyuria or polydipsia. [] Lymphatic: Denies swollen glands. [] Psychiatric: Denies depression or anxiety. [] Heart Score: C/O Chest Pain: Yes HEART Score for Chest Pain: HEART Score for Chest Pain Response (Comments) Value History Slighlty/Non-Suspicious 0 Age >45 - < 65 1 Risk Factors 1 or 2 Risk Factors 1 Total 2 Risk Factors: Risk Factors: DM, Current or recent (<one month) smoker, HTN, HLP, family histo ry of CAD, obesity. Risk Scores: Score 0 - 3: 2.5% MACE over next 6 weeks - Discharge Home Score 4 - 6: 20.3% MACE over next 6 weeks - Admit for Clinical Observation Score 7 - 10: 72.7% MACE over next 6 weeks - Early Invasive Strategies Allergies: Allergies: Allergies Coded Allergies Type Severity Reaction Last Updated Verified codeine Allergy Intermediate 05/17/20 Yes Physical Exam: PE: Constitutional: Well developed, well nourished, no acute distress, non-toxic appearance. [] HENT: Normocephalic, atraumatic, bilateral external ears normal, oropharynx moist, no oral exudates, nose normal. [] Eyes: PERRLA, EOMI, conjunctiva normal, no discharge. [] Neck: Normal range of motion, no tenderness, supple, no stridor. [] Cardiovascular:Heart rate regular rhythm, no murmur [] Lungs & Thorax: Bilateral breath sounds clear to auscultation. No rales. Normal work of breathing. [] Abdomen: Bowel sounds normal, soft, no tenderness, no masses, no pulsatile masses. [] Skin: Warm, dry, no erythema, no rash. [] Extremities: Bilateral lower extremity edema to the knee. Right with scars from ORIF. Few longstanding scales on the skin overlying the right king. Slight edema to bilateral hands. Both sides slightly tender to palpation. DP pulses 2+ bilaterally. Neurologic: Alert and oriented X 3, normal motor function, normal sensory function, no focal deficits noted. [] Psychologic: Affect normal, judgement normal, mood normal. [] Current Patient Data: Vital Signs: Vital Signs Date Time Temp Pulse Resp B/P (MAP) Pulse Ox O2 Delivery O2 Flow Rate FiO2 06/10/21 08:50 98.6 83 20 136/91 (106) 96 Room Air 98.6 EKG: EKG: Sinus rhythm. First-degree AV block. OR 240. Intervals otherwise normal. QTc 467. Normal axis. No acute ischemic changes Radiology/Procedures: Radiology/Procedures: [] Course & Med Decision Making: Course & Med Decision Making Pertinent Labs and Imaging studies reviewed. (See chart for details) Patient 46-year-old female with history of obesity, hypothyroidism, HTN, ORIF of right ankle fracture last year who presents with bilateral lower extremity edema, nighttime cough, chest pain. On arrival is afebrile, hemodynamically stable and well-appearing. There is bilateral edema to the knee. Concern for volume overload, heart failure, renal insufficiency, or other systemic causes of edema rather than a focal cause. No trauma to either extremity to obviate plain films. Essentially symmetric allowing for longstanding swelling following her operation. Do not feel this represents DVT. No cellulitic changes. We will obtain CXR, troponin, BNP, EKG, basic labs for further evaluation --- Creatinine 1.1 BNP only mildly elevated in 200s Trop negative. EKG non-ishcemic. Will give short course of lasix for volume overload and ask that she follow up with her PCP. Potassium was borderline low, so with lasix will also give daily potassium supplementation for next few days. Trever Disclaimer: Trever Disclaimer: This electronic medical record was generated, in whole or in part, using a voice recognition dictation system. Departure Departure Impression: Primary Impression: Lower extremity edema Additional Impression: AV block, 1st degree Disposition: 01 HOME / SELF CARE / HOMELESS Condition: STABLE Referrals: UNKNOWN PCP NAME (PCP) Additional Instructions: You have some extra fluid on your legs. I would like to give you a fluid pill to help you get this off of your legs. Please take furosemide 1 tab (20 mg) daily for the next 5 days. While you are taking this medication please take your potassium pill twice a day (once in the morning, and once in the evening) Please follow-up with your primary care doctor to determine whether you will need continuing medication changes or further work-up. Return to the emergency department if you develop shortness of breath. Scripts Furosemide (FUROSEMIDE) 20 Mg Tablet 1 TAB PO DAILY for 5 Days, #5 TAB 1 Refill Prov: ISAAK AKHTAR MD 06/10/21 ISAAK AKHTAR MD Jun 10, 2021 09:47
[2021-06-10 10:02] LABS: BILIRUBIN,URINE NEGATIVE (NEG); CLARITY,URINE CLEAR; COLOR,URINE YELLOW; NITRITE,URINE NEGATIVE (NEG); PROTEIN,URINE NEGATIVE (NEG-TRACE); UROBILINOGEN,URINE 0.2 mg/dL (0.2 mg/dL)
[2021-06-10 10:09] LABS: BASO % 1 % (0-3); EOS # 0.2 x10^3/uL (0.0-0.7); EOS % 6 % (0-3); HEMATOCRIT 35.4 % (36.0-47.0); HEMOGLOBIN 11.7 g/dL (12.0-15.5); LYMPH # 1.9 x10^3/uL (1.0-4.8); LYMPH % 47 % (24-48); MEAN CORPUSCULAR HEMOGLOBIN 30 pg (25-35); MEAN CORPUSCULAR HGB CONC 33 g/dL (31-37); MEAN CORPUSCULAR VOLUME 90 fL (79-100); MONO # 0.3 x10^3/uL (0.0-1.1); MONO % 8 % (0-9); NEUT # 1.5 x10^3/uL (1.8-7.7); NEUT % 38 % (31-73); PLATELET COUNT 273 x10^3/uL (140-400); RED BLOOD COUNT 3.96 x10^6/uL (3.50-5.40); RED CELL DISTRIBUTION WIDTH 17.2 % (11.5-14.5)
[2021-06-10 10:19] LABS: BACTERIA,URINE FEW /HPF (0-FEW); RBC,URINE 0 /HPF (0-2)
[2021-06-10 10:31] LABS: CREATININE 1.1 mg/dL (0.6-1.0); GFR 64.1; POTASSIUM 3.4 mmol/L (3.5-5.1)
[2021-06-10 10:36] LABS: ALBUMIN 3.4 g/dL (3.4-5.0); ALBUMIN/GLOBULIN RATIO 0.9 (1.0-1.7); TOTAL BILIRUBIN 0.4 mg/dL (0.2-1.0); TOTAL PROTEIN 7.3 g/dL (6.4-8.2)
[2021-06-10] MEDS ORDERED: FURO20TA3 PO (11:36)
[2021-06-10] MEDS: FUROSEMIDE 40 MG TABLET. PO ONE (11:38)
[2021-06-10] MEDS: POTASSIUM CHLORIDE 20 MEQ TABLET.ER. PO ONE (11:38)
[2021-06-10 12:00] VITALS: BP 152/100
--- NOTE | 2021-06-10 14:00 | RAD ---
Exam Date: 06/10/2021 9:32 AM XR CHEST 1V Indication: Reason: lower extremity edema / Spl. Instructions: / History: . Shortness of breath Comparison: April 28, 2020 FINDINGS/ IMPRESSION: The cardiac silhouette and pulmonary vasculature are within normal limits. There is no focal consolidation, pleural effusion or pneumothorax. The visualized osseous structures are intact. Electronically signed by: Andrei Suarez MD (06/10/2021 9:56 AM) [id number]
== END 2021-06-10 12:45 | disposition home or self-care (01) ==
LOC: ER 08:45
DX: R60.0 Localized edema (principal); I44.0 Atrioventricular block, first degree; R05 Cough; I10 Essential (primary) hypertension; Z88.5 Allergy status to narcotic agent
CPT/HCPCS: 36415; 71045; 80053; 81001; 83880; 84484; 85025; 99285-25

== ENCOUNTER 2021-09-04 11:20 | Emergency (ER) | payer OTHER ==
[~2021-09-04] VITALS: Ht 162.6 cm; Wt 115.0 kg
[~2021-09-04 11:20] MED LIST changes: +CYCL10TA19 PO; -CYCL10TA2 PO; +FURO20TA3 PO
[2021-09-04] MEDS ORDERED: IPRATRPIUM/ALBUTEROL 0.5/2.5MG 3 ML NEBU. NEB ONE (12:30)
[2021-09-04 13:01] LABS: BASE EXCESS COOX 4 mmol/L (-3-3); HCO3 COOX 29 mmol/L (21-28); METHEMOGLOBIN 0.4 % (0.0-1.9); OXYHEMOGLOBIN 90.4 %; PCO2 COOX 47 mmHg (35-46); PO2 COOX 67 mmHg (75-108); SAT O2 COOX 93 % (92-99)
--- NOTE | 2021-09-04 13:11 | RAD ---
XR CHEST 1V History: Reason: SOA, COUGH / Spl. Instructions: / History: Comparison: June 10, 2021 Findings: No consolidation or pleural effusion. Normal heart size. No pneumothorax. Impression: 1. No acute cardiopulmonary process. Electronically signed by: Tahir Grande DO (09/04/2021 1:09 PM) [id number]
[2021-09-04 13:44] LABS: BASO % 1 % (0-3); EOS # 0.2 x10^3/uL (0.0-0.7); EOS % 4 % (0-3); HEMATOCRIT 42.7 % (36.0-47.0); HEMOGLOBIN 13.9 g/dL (12.0-15.5); LYMPH # 1.9 x10^3/uL (1.0-4.8); LYMPH % 31 % (24-48); MEAN CORPUSCULAR HEMOGLOBIN 29 pg (25-35); MEAN CORPUSCULAR HGB CONC 33 g/dL (31-37); MEAN CORPUSCULAR VOLUME 90 fL (79-100); MONO # 0.4 x10^3/uL (0.0-1.1); MONO % 6 % (0-9); NEUT # 3.5 x10^3/uL (1.8-7.7); NEUT % 58 % (31-73); PLATELET COUNT 251 x10^3/uL (140-400); RED BLOOD COUNT 4.75 x10^6/uL (3.50-5.40); RED CELL DISTRIBUTION WIDTH 17.5 % (11.5-14.5)
[2021-09-04 14:00] LABS: CALCIUM 9.2 mg/dL (8.5-10.1); CREATININE 1.1 mg/dL (0.6-1.0); GFR 64.1; POTASSIUM 4.2 mmol/L (3.5-5.1)
--- NOTE | 2021-09-04 14:03 | PHYS DOC ---
Past Medical History Past Medical History: Anxiety, Hypertension Additional Past Medical Histor: Brain tumor, "psoriasis or eczema, I don't loreta mber which" (MOHINDER SHETTYWard Lewis MANAGER DOMESTIC) Past Surgical History: Other Additional Past Surgical Histo: Right lower extremity surgery and brain tumor removed (DIOGENESPATRICE M MANAGER DOMESTIC) Smoking Status: Never Smoker Alcohol Use: None Drug Use: None (MALIKPATRICE M MANAGER DOMESTIC) General Adult EDM: Chief Complaint: COUGH HPI: HPI: Patient is a 46 year old female who presents with 2 days of cough with shortness of breath and states it hurts when she takes a deep breath. Denies headache, dizziness, syncope, abdominal pain, nausea, vomiting, diarrhea, focal weakness, numbness or tingling. Patient has history of psoriasis, eczema, hypertension, anxiety. (MALIKPATIRCE M MANAGER DOMESTIC) Review of Systems: Review of Systems: Constitutional: Denies fever or chills. [] Eyes: Denies change in visual acuity. [] HENT: Denies nasal congestion or sore throat. [] Respiratory: Denies cough or shortness of breath. [] Cardiovascular: Denies chest pain or edema. [] GI: Denies abdominal pain, nausea, vomiting, bloody stools or diarrhea. [] : Denies dysuria. [] Musculoskeletal: Denies back pain or joint pain. [] Integument: Denies rash. [] Neurologic: Denies headache, focal weakness or sensory changes. [] Endocrine: Denies polyuria or polydipsia. [] Lymphatic: Denies swollen glands. [] Psychiatric: Denies depression or anxiety. [] (PATRICE SHETTY MANAGER DOMESTIC) Heart Score: C/O Chest Pain: Yes HEART Score for Chest Pain: HEART Score for Chest Pain Response (Comments) Value History Slighlty/Non-Suspicious 0 ECG Normal 0 Age >45 - < 65 1 Risk Factors 1 or 2 Risk Factors 1 Troponin < Normal Limit 0 Total 2 Risk Factors: Risk Factors: DM, Current or recent (<one month) smoker, HTN, HLP, family history of CAD, obesity. Risk Scores: Score 0 - 3: 2.5% MACE over next 6 weeks - Discharge Home Score 4 - 6: 20.3% MACE over next 6 weeks - Admit for Clinical Observation Score 7 - 10: 72.7% MACE over next 6 weeks - Early Invasive Strategies (MALIKUSPATRICE Lewis APRN) Current Medications: Current Medications Medications (Trade) Dose Ordered Sig/Olvin Start Time Stop Time Status Last Admin Dose Admin Albuterol/ Ipratropium (Duoneb) 6 ml 1X ONCE 09/04/21 12:30 09/04/21 12:35 DC 09/04/21 12:38 6 ML (PATRICE SHETTY MANAGER DOMESTIC) Allergies: Allergies: Allergies Coded Allergies Type Severity Reaction Last Updated Verified codeine Allergy Intermediate 05/17/20 Yes (PATRICE SHETTY APRN) Physical Exam: PE: Constitutional: Well developed, well nourished, no acute distress, non-toxic appearance. [] HENT: Normocephalic, atraumatic, bilateral external ears normal, oropharynx moist, no oral exudates, nose normal. [] Eyes: PERRLA, EOMI, conjunctiva normal, no discharge. [] Neck: Normal range of motion, no tenderness, supple, no stridor. [] Cardiovascular:Heart rate regular rhythm, no murmur [] Lungs & Thorax: Bilateral upper breath sounds clear lower diminished to auscultation [] Abdomen: Bowel sounds normal, soft, no tenderness, no masses, no pulsatile masses. [] Skin: Warm, dry, no erythema, no rash. [] Back: No tenderness, no CVA tenderness. [] Extremities: No tenderness, no cyanosis, no clubbing, ROM intact, no edema. [] Neurologic: Alert and oriented X 3, normal motor function, normal sensory function, no focal deficits noted. [] Psychologic: Affect normal, judgement normal, mood normal. [] (PATRICE SHETTY APRN) Current Patient Data: Labs: Laboratory Tests Test 09/04/21 12:13 09/04/21 13:00 09/04/21 13:29 SARS-CoV-2 Antigen (Rapid) Negative (NEGATIVE) O2 Saturation 93 % (92-99) Arterial Blood pH 7.41 (7.35-7.45) Arterial Blood pCO2 at Patient Temp 47 mmHg (35-46) H Arterial Blood pO2 at Patient Temp 67 mmHg (75-108) L Arterial Blood HCO3 29 mmol/L (21-28) H Arterial Blood Base Excess 4 mmol/L (-3-3) H Oxyhemoglobin 90.4 % Methemoglobin 0.4 % (0.0-1.9) Carbon Monoxide, Quantitative 2.8 % (0.0-1.9) H FiO2 21% room air White Blood Count 6.0 x10^3/uL (4.0-11.0) Red Blood Count 4.75 x10^6/uL (3.50-5.40) Hemoglobin 13.9 g/dL (12.0-15.5) Hematocrit 42.7 % (36.0-47.0) Mean Corpuscular Volume 90 fL (79-100) Mean Corpuscular Hemoglobin 29 pg (25-35) Mean Corpuscular Hemoglobin Concent 33 g/dL (31-37) Red Cell Distribution Width 17.5 % (11.5-14.5) H Platelet Count 251 x10^3/uL (140-400) Neutrophils (%) (Auto) 58 % (31-73) Lymphocytes (%) (Auto) 31 % (24-48) Monocytes (%) (Auto) 6 % (0-9) Eosinophils (%) (Auto) 4 % (0-3) H Basophils (%) (Auto) 1 % (0-3) Neutrophils # (Auto) 3.5 x10^3/uL (1.8-7.7) Lymphocytes # (Auto) 1.9 x10^3/uL (1.0-4.8) Monocytes # (Auto) 0.4 x10^3/uL (0.0-1.1) Eosinophils # (Auto) 0.2 x10^3/uL (0.0-0.7) Basophils # (Auto) 0.0 x10^3/uL (0.0-0.2) Laboratory Tests 09/04/21 13:29 Vital Signs: Vital Signs Date Time Temp Pulse Resp B/P (MAP) Pulse Ox O2 Delivery O2 Flow Rate FiO2 09/04/21 12:38 92 Room Air 09/04/21 12:19 98.5 92 18 136/86 (103) 98.5 (PATRICE SHETTY MANAGER DOMESTIC) EKG: EK-year-old run and read by Dr. Sanchez as sinus rhythm with a prolonged QT but no STEMI (PATRICE SHETTY APRN) Radiology/Procedures: Radiology/Procedures: [] Impression: [facility] [address] [place] [address] IMAGING REPORT Signed PATIENT: SABRINA RICKETTS: [id number] : 1975 LOCATION: ER AGE: 46 SEX: F EXAM STATUS: PRE ER ORD. PHYSICIAN: PATRICE SHETTY APRN REASON: SOA, COUGH PROCEDURE: PORTABLE CHEST 1V XR CHEST 1V History: Reason: SOA, COUGH / Spl. Instructions: / History: Comparison: June 10, 2021 Findings: No consolidation or pleural effusion. Normal heart size. No pneumothorax. Impression: 1. No acute cardiopulmonary process. Electronically signed by: Tahir Grande DO (09/04/2021 1:09 PM) [id number] DICTATED and SIGNED BY: TAHIR GRANDE DO DATE: 09/04/21 [id number] [facility] [address] [place] [address] IMAGING REPORT Signed PATIENT: SABRINA RICKETTS: [id number] : 1975 LOCATION: ER AGE: 46 SEX: F EXAM STATUS: REG ER ORD. PHYSICIAN: PATRICE SHETTY APRN REASON: PAIN WITH BREATHING, SOA, LOW O2 SATURATION PROCEDURE: CT ANGIOGRAPHY CHEST CTA chest with contrast dated 09/04/2021. COMPARISON: None. Clinical data indication: Difficulty breathing. TECHNIQUE: Contiguous axial imaging the chest performed following the intravenous ad ministration of 100 cc Omnipaque 350. Study was performed as dedicated PE protocol with thin cut coronal MIPS 3-D reconstruction. One or more of the following individualized dose reduction techniques were utilized for this examination: 1. Automated exposure control 2. Adjustment of the mA and/or kV according to patient size 3. Use of iterative reconstruction technique. FINDINGS: Contrast bolus is adequate. No evidence of central, lobar or segmental pulmonary embolus. Subsegmental branches are not well evaluated based on technique. Heart size is upper limits of normal. No pericardial effusion. There are calcified subcarinal and left paratracheal lymph nodes. No mediastinal, hilar or axillary lymphadenopathy. There is a 5 mm low-density nodule in the left lobe thyroid gland, nonspecific. Central airways are patent. Patchy and linear opacity in the lower lobes, likely atelectasis. No consolidation or pleural effusion. No pneumothorax. There are a few scattered calcified granuloma. Images of upper abdomen show diffuse low-density liver compatible with fatty infiltration. No apparent mass. Biliary tree normal in caliber. There is a low- density focus at the upper pole left kidney, most consistent with cyst. Bone windows show no acute findings. IMPRESSION: 1. No evidence of central, lobar or segmental pulmonary embolus. 2. Patchy bibasilar opacities, likely scar or atelectasis. 3. Old granulomatous disease. 4. Fatty infiltration of the liver. Electronically signed by: Nathaniel Cox MD (09/04/2021 3:44 PM) [facility] [place] DICTATED and SIGNED BY: NATHANIEL COX MD DATE: 09/04/21 [id number] (PATRICE SHETTY APRN) Course & Med Decision Making: Course & Med Decision Making Pertinent Labs and Imaging studies reviewed. (See chart for details) I see HPI. Alert and oriented x4. Ambulatory steady gait. Speaks in full clear sentences. Skin pink warm and dry. She has only 92% on room air. She does not have asthma denies smoking. I have ordered her regular treatment. This x-ray shows no acute findings. Bilateral upper lobes are clear and lower lobes are diminished. See HPI. Chest x-ray shows no acute findings. CT of the chest shows no acute findings. Patient vital signs remained stable. She states she is ready to leave. Patient will receive a Medrol Dosepak and inhaler and follow-up primary care. [] (PATRICE SHETTY APRN) Trever Disclaimer: Trever Disclaimer: This electronic medical record was generated, in whole or in part, using a voice recognition dictation system. (PATRICE SHETTY APRN) Departure Departure Impression: Primary Impression: Cough Disposition: HOME / SELF CARE / HOMELESS Condition: STABLE Referrals: UNKNOWN PCP NAME (PCP) Patient Instructions: Cough, Adult Additional Instructions: Follow-up with primary care provider soon as possible. Drink plenty of fluids. Take medications as prescribed and with food. If you get having severe chest pain or shortness of breath return to the emergency room. Scripts Albuterol Sulfate (PROAIR HFA INHALER) 8.5 Gm Hfa.aer.ad 1 PUFF INH PRN Q6HRS PRN for SHORTNESS OF BREATH, #1 EACH 0 Refills Prov: PATRICE SHETTY APRN 09/04/21 Methylprednisolone (MEDROL) 4 Mg Tab.ds.pk 1 PKG PO UD, #1 PKG Prov: PATRICE SHETTY APRN 09/04/21 Attending Signature I have participated in the care of this patient and I have reviewed and agree with all pertinent clinical information above including history, exam, and recommendations. (YEFRI DHALIWAL DO) PATRICE SHETTY APRN Sep 04, 2021 14:03 YEFRI DHALIWAL DO Sep 04, 2021 17:43
[2021-09-04 14:13] LABS: ALBUMIN 3.4 g/dL (3.4-5.0); ALBUMIN/GLOBULIN RATIO 0.7 (1.0-1.7); TOTAL BILIRUBIN 0.4 mg/dL (0.2-1.0); TOTAL PROTEIN 8.2 g/dL (6.4-8.2)
[2021-09-04] MEDS ORDERED: methylPREDNISolone SOD SUCC PF 125 MG/2 ML VIAL. IV ONE (14:15)
[2021-09-04] MEDS ORDERED: IOHEXOL 350 MG/ML 100 ML VIAL. IV ONE (15:00)
[2021-09-04] MEDS ORDERED: CONTRAST GIVEN. MC PRN (15:15)
[2021-09-04] MEDS ORDERED: IV NORMAL SALINE 1000ML BAG 1,000 ML IV ONE (15:45)
--- NOTE | 2021-09-04 15:46 | RAD ---
CTA chest with contrast dated 09/04/2021. COMPARISON: None. Clinical data indication: Difficulty breathing. TECHNIQUE: Contiguous axial imaging the chest performed following the intravenous administration of 100 cc Omnip aque 350. Study was performed as dedicated PE protocol with thin cut coronal MIPS 3-D reconstruction. One or more of the following individualized dose reduction techniques were utilized for this examinat ion: 1. Automated exposure control 2. Adjustment of the mA and/or kV according to patient size 3. Use of iterative reconstruction technique. FINDINGS: Contrast bolus is adequate. No evidence of central, lobar or segmental pulmonary embolus. Subsegmenta l branches are not well evaluated based on technique. Heart size is upper limits of normal. No pericardial effusion. There are calcified subcarinal and lef t paratracheal lymph nodes. No mediastinal, hilar or axillary lymphadenopathy. There is a 5 mm low-de nsity nodule in the left lobe thyroid gland, nonspecific. Central airways are patent. Patchy and linear opacity in the lower lobes, likely atelectasis. No cons olidation or pleural effusion. No pneumothorax. There are a few scattered calcified granuloma. Images of upper abdomen show diffuse low-density liver compatible with fatty infiltration. No apparen t mass. Biliary tree normal in caliber. There is a low-density focus at the upper pole left kidney, m ost consistent with cyst. Bone windows show no acute findings. IMPRESSION: 1. No evidence of central, lobar or segmental pulmonary embolus. 2. Patchy bibasilar opacities, likely scar or atelectasis. 3. Old granulomatous disease. 4. Fatty infiltration of the liver. Electronically signed by: Nathaniel Cox MD (09/04/2021 3:44 PM) [facility]
--- NOTE | 2021-09-04 16:31 | EKG ---
[facility] [address] [place] [address] Test Date: 2021-09-04 Test Time: 16:01:00 Pat Name: SABRINA RICKETTS Department: Room: Gender: F [employer]: : 1975 Requested By: PATRICE SHETTY Order Number: [id number] Reading MD: Levar Bradford Measurements Intervals [place] Rate: 90 P: 26 OK: 154 QRS: 24 QRSD: 82 T: -11 QT: 416 QTc: 514 Interpretive Statements SINUS RHYTHM T ABNORMALITY IN ANTERIOR LEADS, POSSIBLE ISCHEMIA PROLONGED QT ABNORMAL ECG Electronically Signed On 09-05-2021 15:33:36 SOLE MOLDING MACHINE OPERATOR by Levar Bradford
[2021-09-04] MEDS ORDERED: METH4TAB2 PO (17:36)
[2021-09-04] MEDS ORDERED: ALBU2.5V8 INH (17:36)
[2021-09-04 18:08] VITALS: BP 145/89
--- NOTE | 2021-09-05 15:31 | NUR ---
IP: Informed pt of negative covid results. Pt verbalized understanding.
== END 2021-09-04 18:11 | disposition home or self-care (01) ==
LOC: ER 11:20
DX: R05.9 Cough, unspecified (principal); R06.02 Shortness of breath; Z20.822 Contact with and (suspected) exposure to COVID-19; I10 Essential (primary) hypertension; F41.9 Anxiety disorder, unspecified; Z88.5 Allergy status to narcotic agent
CPT/HCPCS: 36415; 36600; 71045; 71275; 80053; 82805; 84484; 85025; 85379; 87426; 93005; 94640; 96374; 99285; J2930; Q9967; U0003; U0005

== ENCOUNTER 2021-09-09 10:06 | Emergency (ER) | payer OTHER ==
[~2021-09-09] VITALS: Ht 165.1 cm; Wt 104.0 kg
[~2021-09-09 10:06] MED LIST changes: +ALBU2.5V8 INH
[2021-09-09 10:50] VITALS: BP 148/81
[2021-09-09] MEDS ORDERED: FAMOTIDINE 20 MG/2 ML VIAL IVP ONE (11:15)
[2021-09-09] MEDS ORDERED: methylPREDNISolone SOD SUCC PF 125 MG/2 ML VIAL. IV ONE (11:15)
[2021-09-09] MEDS ORDERED: diphenhydrAMINE 50 MG/ML VIAL IVP ONE (11:15)
[2021-09-09] MEDS ORDERED: IV NORMAL SALINE 1000ML BAG 1,000 ML IV ONE (11:15)
--- NOTE | 2021-09-09 13:12 | PHYS DOC ---
Past Medical History Past Medical History: Anxiety, Hypertension Additional Past Medical Histor: Brain tumor, "psoriasis or eczema, I don't remember which" Past Surgical History: Other Additional Past Surgical Histo: Right lower extremity surgery and brain tumor removed, FOOT SX Smoking Status: Current Some Day Smoker Alcohol Use: Occasionally Drug Use: None General Adult EDM: Chief Complaint: SKIN RASH/ABSCESS HPI: HPI: Patient is a 46 year old female presents emerged department complaining of itching and rash to her body since starting Medrol Dosepak yesterday. Patient reports she was seen here yesterday for cough, was given albuterol treatments and started on a Medrol Dosepak this past Wednesday, patient reports the next day she picked up her prescription and started taking the prednisone medication, patient reports she soon broke out in hives and itching all over, has not taken any pmqk-jbk-trkjsui Benadryl or other medication treatments for her itching, patient reports she thought it would just go away. Patient denies shortness of breath, chest pains, chest palpitations, denies chest or nasal congestion. Denies syncopal or near syncopal episodes, denies visual disturbances. Patient denies other physical complaints or physical concerns. Patient reports her last menstrual cycle was 2 weeks ago with normal duration of flow. Review of Systems: Review of Systems: 14 body systems of review of systems have been reviewed. See HPI for pertinent positives and negative responses, otherwise all other systems are negative, nonpertinent or noncontributory. Constitutional: Negative except as outlined in HPI above. Skin: Negative except as outlined in HPI above. Eyes: Negative except as outlined in HPI above. HENT: Negative except as outlined in HPI above. Respiratory: Negative except as outlined in HPI above. Cardiovascular: Negative except as outlined in HPI above. GI: Negative except as outlined in HPI above. : Negative except as outlined in HPI above. Musculoskeletal: Negative except as outlined in HPI above. Integument: Negative except as outlined in HPI above. Neurologic: Negative except as outlined in HPI above. Endocrine: Negative except as outlined in HPI above. Lymphatic: Negative except as outlined in HPI above. Psychiatric: Negative except as outlined in HPI above. Heart Score: C/O Chest Pain: No Risk Factors: Risk Factors: DM, Current or recent (<one month) smoker, HTN, HLP, family history of CAD, obesity. Risk Scores: Score 0 - 3: 2.5% MACE over next 6 weeks - Discharge Home Score 4 - 6: 20.3% MACE over next 6 weeks - Admit for Clinical Observation Score 7 - 10: 72.7% MACE over next 6 weeks - Early Invasive Strategies Current Medications: Current Medications Medications (Trade) Dose Ordered Sig/Olvin Start Time Stop Time Status Last Admin Dose Admin Diphenhydramine HCl (Benadryl) 25 mg 1X ONCE 09/09/21 11:15 09/09/21 11:16 DC 09/09/21 11:28 25 MG Famotidine (Pepcid Vial) 40 mg 1X ONCE 09/09/21 11:15 09/09/21 11:16 DC 09/09/21 11:28 40 MG Methylprednisolone Sodium Succinate (SOLU-Medrol 125MG VIAL) 125 mg 1X ONCE 09/09/21 11:15 09/09/21 11:16 DC 09/09/21 11:28 125 MG Sodium Chloride 1,000 ml @ 1,000 mls/hr 1X ONCE 09/09/21 11:15 09/09/21 12:14 DC 09/09/21 11:26 1,000 MLS/HR Allergies: Allergies: Allergies Coded Allergies Type Severity Reaction Last Updated Verified codeine Allergy Intermediate 05/17/20 Yes Physical Exam: PE: Constitutional: Well developed, well nourished, no acute distress, non-toxic appearance. 46-year-old female is anxious in appearance. HENT: Normocephalic, atraumatic. Eyes: Conjunctiva normal, no discharge. Neck: Normal range of motion, no stridor. Cardiovascular: No cyanosis appreciated, distal cap refill less than 2 seconds. Lungs & Thorax: Patient is in no respiratory distress, no audible adventitious lung sounds appreciated. Abdomen: Nontender, no abnormalities noted. Skin: Warm, dry, no erythema, no rash. Patches of erythematous pruritic wheals on bilateral upper extremities, waistline, anterior thighs, posterior trunk, abdomen, the face and neck are spared. No weeping from erythematous lesions. Back: No tenderness, no deformities. Extremities: No tenderness, no cyanosis, no clubbing, ROM intact, no edema. Neurologic: Alert and oriented X 3, normal motor function, normal sensory function, no focal deficits noted. Psychologic: Affect normal, judgement normal, mood normal. Current Patient Data: Vital Signs: Vital Signs Date Time Temp Pulse Resp B/P (MAP) Pulse Ox O2 Delivery O2 Flow Rate FiO2 09/09/21 10:50 98.1 104 16 148/81 (103) 95 Room Air 98.1 EKG: EKG: [] Radiology/Procedures: Radiology/Procedures: [] Course & Med Decision Making: Course & Med Decision Making Pertinent Labs and Imaging studies reviewed. (See chart for details) 38-year-old female, vital signs reviewed, presents to the emergency department concerning itching and hives that started yesterday. Patient's physical examination consistent with acute urticaria, will treat with Benadryl and Pepcid. After period of time, patient reports her itching has resolved, is no longer anxious in appearance, raised wheals are now flat with only minor erythematous discoloration. Discussed with patient to stop taking Medrol Dosepak, will prescribe hydroxyzine for return of itching, discussed with patient to consider using riyo-lkl-pwuhmzu cetirizine or loratadine for returning itching symptoms. Strict follow-up with primary care this week for ongoing symptoms, will give recommendation of dermatology for ongoing symptoms, patient gave verbal under standing of and is amenable to ED discharge planning. Discussed with the patient all findings and diagnostic testing as well as the need to follow-up with their primary care provider for further evaluation and treatment or return to the ED if any new or worsening symptoms. Strict return precautions were also discussed at length, the patient voiced understanding and agreement with the discharge planning. The patient was nontoxic in appearance, in no apparent distress, and hemodynamically stable at the time of disposition. Dragon Disclaimer: DragDelfmems Disclaimer: This electronic medical record was generated, in whole or in part, using a voice recognition dictation system. Departure Departure Impression: Primary Impression: Hives Disposition: HOME / SELF CARE / HOMELESS Condition: GOOD Referrals: NO PCP (PCP) Patient Instructions: Hives Additional Instructions: You were seen today in the emergency department for hives and itching after starting a new medication this past Wednesday. Please stop taking this medication, I suspect your itching will return, I prescribed for you hydroxyzine medications for further itching, please take as directed, please follow-up with your primary care physician for ongoing evaluation for your allergic reaction. Consider taking knvh-mfr-lljiwuw Zyrtec allergy medication for returning symptoms. Return to the emergency department for worsening symptoms, shortness of breath or chest pains, or other concerns. Thank you for visiting our Emergency Department. It was a pleasure taking care of you today in the emergency department and we appreciate you trusting us with your care. If any additional problems come up don't hesitate to return to visit us. Please follow up with your primary care provider so they can plan additional care if needed and know about the problem that you had. If symptoms worsen come back to the Emergency Department. Any concerning symptoms that start such as chest pain, shortness of air, weakness or numbness on one side of the body, running high fevers or any other concerning symptoms return to the ER. Scripts Hydroxyzine Hcl (HYDROXYZINE HCL) 25 Mg Tablet 1 TAB PO PRN TID PRN for itching, #30 TAB 0 Refills Prov: YURY FERRER APRN 09/09/21 YURY FERRER APRN Sep 09, 2021 13:12
[2021-09-09] MEDS ORDERED: HYDR25TA PO (14:55)
== END 2021-09-09 15:25 | disposition home or self-care (01) ==
LOC: ER 10:06
DX: L50.9 Urticaria, unspecified (principal); I10 Essential (primary) hypertension; F17.200 Nicotine dependence, unspecified, uncomplicated; Z88.5 Allergy status to narcotic agent
CPT/HCPCS: 96361; 96374; 96375; 99284; J1200; J2930; J3490; J7030

== ENCOUNTER 2022-01-23 14:19 | Emergency (ER) | payer OTHER ==
[~2022-01-23] VITALS: Ht 167.6 cm; Wt 135.1 kg
[~2022-01-23 14:19] MED LIST changes: +HYDR25TA PO
[2022-01-23 14:25] VITALS: BP 127/79
[2022-01-23] MEDS ORDERED: IPRATRPIUM/ALBUTEROL 0.5/2.5MG 3 ML NEBU. NEB ONE (15:15)
[2022-01-23 15:52] LABS: INFLUENZA A PATIENT NEGATIVE (NEGATIVE); INFLUENZA B PATIENT NEGATIVE (NEGATIVE)
--- NOTE | 2022-01-23 15:52 | PHYS DOC ---
Past Medical History Past Medical History: Anxiety, Hypertension Additional Past Medical Histor: Brain tumor, "psoriasis or eczema, I don't remember which" Past Surgical History: Other Additional Past Surgical Histo: Right lower extremity surgery/brain tumor removed, FOOT SX Smoking Status: Never Smoker Alcohol Use: None Drug Use: None General Adult EDM: Chief Complaint: COUGH HPI: HPI: Patient is a 46 year old female smoker with history of recurrent bronchitis who presents with cough and weakness x1 week. Patient reports associated shortness of breath. She denies sputum production, fever, chills, chest pain, palpitations. Patient has no other complaints at this time. Review of Systems: Review of Systems: Constitutional: See HPI Eyes: Denies change in visual acuity, visual field deficits or discharge HENT: Denies ear pain, nasal congestion or sore throat Respiratory: See HPI Cardiovascular: See HPI GI: Denies abdominal pain, nausea, vomiting, bloody stools or diarrhea : Denies dysuria or hematuria Musculoskeletal: Denies back pain or joint pain Integument: Denies rash or other skin lesion Neurologic: Denies headache, focal weakness or sensory changes Heart Score: C/O Chest Pain: No Current Medications: Current Medications Medications (Trade) Dose Ordered Sig/Olvin Start Time Stop Time Status Last Admin Dose Admin Albuterol/ Ipratropium (Duoneb) 3 ml 1X ONCE 01/23/22 15:15 01/23/22 15:16 DC 01/23/22 15:28 3 ML Allergies: Allergies: Allergies Coded Allergies Type Severity Reaction Last Updated Verified codeine Allergy Intermediate 05/17/20 Yes Physical Exam: PE: Constitutional: Obese, no acute distress, non-toxic appearance. HENT: Normocephalic, atraumatic, bilateral external ears normal, nose normal. Eyes: EOMI, conjunctiva normal, no discharge. Neck: Normal range of motion, no stridor. Cardiovascular: Heart regular rate and rhythm. No apparent murmurs, rubs or gallops. Lungs & Thorax: Equal thoracic expansion, no increased work of breathing, diffuse expiratory wheezing. Skin: Warm, dry, no erythema, no rash. Extremities: No tenderness, no cyanosis, no clubbing, ROM intact, no edema. Neurologic: Alert and oriented x4, normal motor function, normal sensory function, no focal deficits noted. Current Patient Data: Labs: Laboratory Tests Test 01/23/22 15:00 Influenza Type A Antigen Negative (NEGATIVE) Influenza Type B Antigen Negative (NEGATIVE) SARS-CoV-2 Antigen (Rapid) Negative (NEGATIVE) Vital Signs: Vital Signs Date Time Temp Pulse Resp B/P (MAP) Pulse Ox O2 Delivery O2 Flow Rate FiO2 01/23/22 15:32 100 Room Air 01/23/22 14:42 96 Room Air 01/23/22 14:25 98.0 96 20 127/79 (95) 91 Room Air 98.0 Radiology/Procedures: Radiology/Procedures: PROCEDURE: PORTABLE CHEST 1V Single view chest dated 01/23/2022 3:51 PM: COMPARISON: 09/04/2022 Clinical Indication: Cough and shortness of breath. Findings: Single upright portable exam of the chest was performed. Heart and mediastinal contours are stable. Lungs are hypoinflated but otherwise clear. No consolidation or pleural effusion. No pneumothorax. IMPRESSION: No acute radiographic abnormality. Electronically signed by: Nathaniel Cox MD (01/23/2022 3:52 PM) [facility] [place] Med Decision Making: Course & Med Decision Making Pertinent Labs and Imaging studies reviewed. (See chart for details) Patient presentation work-up consistent with bronchitis. Patient states that her breathing is improved after breathing treatment. Wheezing is resolved. I advised that she use her albuterol inhaler at home as needed, as she has not attempted use it yet. Patient counseled on smoking cessation. Return precautions were provided. Patient understands and is agreeable to discharge plan. Trever Disclaimer: Trever Disclaimer: This electronic medical record was generated, in whole or in part, using a voice recognition dictation system. Departure Departure Impression: Primary Impression: Bronchitis with acute wheezing Disposition: 01 HOME / SELF CARE / HOMELESS Condition: IMPROVED Referrals: UNKNOWN PCP NAME (PCP) Patient Instructions: Acute Bronchitis, [id number] Additional Instructions: EMERGENCY DEPARTMENT GENERAL DISCHARGE INSTRUCTIONS Thank you for coming to [facility] Emergency Department (ED) today and trusting us with you care. We trust that you had a positive experience in our Emergency Department. If you wish to speak to the department management, you may call the director at . YOUR FOLLOW UP INSTRUCTIONS ARE FOLLOWS: 1. Follow up with your primary care doctor. If you do not have a primary doctor, please ask for a resource list of physicians or clinics that may be able to assist you with follow up care. 2. The emergency provider has interpreted your imaging studies, if any were or dered. The radiology crime specialist also reviewed them. If there is a change in the findings, you will be notified in 48 hours when at all possible. 3. If a lab test or culture has been done, your results will be reviewed and you will be notified if you need a change in treatment. 4. Follow instructions verbalized to you and refer to the printouts if needed. ADDITIONAL INSTRUCTIONS AND INFORMATION: 1. Your care today has been supervised by a physician who is specially trained in emergency care. Many problems require more than one evaluation for a complete diagnosis and treatment. We recommend that you schedule your follow up appointment as recommended to ensure complete treatment of you illness or injury. If you are unable to obtain follow up care and continue to have a problem, or if your condition worsens, we recommend that you return to the ED. 2. We are not able to safely determine your condition over the phone nor are we able to give sound medical advice over the phone. For these safety reasons, if you call for medical advice we will ask you to come to the ED for further evaluation. 3. If you have any questions regarding these discharge instructions please call the ED at . SAFETY INFORMATION: In the interest of safety, wellness, and injury prevention; we encourage you to wear your seat belt, if you smoke; quite smoking, and we encourage family to use a protective helmet for bicycling and other sporting events that present an increased risk for head injury. IF YOUR SYMPTOMS WORSEN OR NEW SYMPTOMS DEVELOP, OR YOU HAVE CONCERNS ABOUT YOUR CONDITION; OR IF YOUR CONDITION WORSENS WHILE YOU ARE WAITING FOR YOUR FOLLOW UP APPOINTMENT; EITHER CONTACT YOUR PRIMARY CARE DOCTOR, THE PHYSICIAN WHOSE NAME AND NUMBER YOU WERE GIVEN, OR RETURN TO THE ED IMMEDIATELY. CHRIS HWANG January 23, 2022 15:52
--- NOTE | 2022-01-23 15:55 | RAD ---
Single view chest dated 01/23/2022 3:51 PM: COMPARISON: 09/04/2022 Clinical Indication: Cough and shortness of breath. Findings: Single upright portable exam of the chest was performed. Heart and mediastinal contours are stable. L ungs are hypoinflated but otherwise clear. No consolidation or pleural effusion. No pneumothorax. IMPRESSION: No acute radiographic abnormality. Electronically signed by: Nathaniel Cox MD (01/23/2022 3:52 PM) [facility]
[2022-01-23] MEDS ORDERED: DEXAMETHASONE 4 MG TABLET PO ONE (16:30)
== END 2022-01-23 17:08 | disposition home or self-care (01) ==
LOC: ER 14:19
DX: J40 Bronchitis, not specified as acute or chronic (principal); I10 Essential (primary) hypertension; Z20.822 Contact with and (suspected) exposure to COVID-19; Z88.5 Allergy status to narcotic agent
CPT/HCPCS: 71045; 87428; 94640; 99284; C9803; U0003